=== PATIENT | male | born 2000 | race Caucasian/White ===

== ENCOUNTER 2019-07-08 19:10 | Emergency (ER) | payer SELFPAY ==
[2019-07-08] MEDS ORDERED: cefTRIAXone 250 MG in Lidocaine 1% 1 ML IM ONE (20:11)
[2019-07-08] MEDS ORDERED: Doxycycline 100 MG Cap PO ONE (20:12)
--- NOTE | 2019-07-08 20:35 | EDM.PDOC ---
ED HPI GENERAL MEDICAL PROBLEM - General Chief Complaint: Genitourinary Problem Stated Complaint: RIGHT TESTICULAR PAIN Time Seen by Provider: 07/08/19 20:15 Source of Information: Reports: Patient - History of Present Illness INITIAL COMMENTS - FREE TEXT/NARRATIVE: The patient is a 18-year-old male who presents to the ER secondary to right- sided testicular pain. He states that it is not severe. He states that he was at work a few days ago and noticed a slight ache in his right testicle on the backside. He did not notice any lumps, no penile discharge, no dysuria, no swelling, no flank pain, no abdominal pain, no other acute complaints. The pain had gone away by the time the patient had gone to bed and when he woke up and went back to work he was fine most of the day and then the ache returned. He then went home and took a shower and the ache went away and then returned again today. It seems to be better if he takes a hot shower or if he supports his testicle. It still is intermittent. No other acute complaints. testicle Pain Score (Numeric/FACES): 4 - Related Data Allergies Allergy/AdvReac Type Severity Reaction Status Date / Time No Known Allergies Allergy Verified 07/08/19 19:40 Home Meds: Home Meds Doxycycline [Vibramycin] 100 mg PO BID 10 Days #20 cap 07/08/19 [Rx] Past Medical History - Past Health History Medical/Surgical History: Denies Medical/Surgical History Social & Family History - Family History Family Medical History: Noncontributory - Tobacco Use Smoking Status *Q: Current Every Day Smoker Years of Tobacco use: 1 Packs/Tins Daily: 0.5 Tobacco Use Comment: socially - Caffeine Use Caffeine Use: Reports: None ED ROS GENERAL - Review of Systems Review Of Systems: See Below (Positive for right testicular pain, negative for fevers, negative abdominal pain, negative for flank pain, negative for penile discharge, negative for dysuria, all other Positives and pertinent negatives as per HPI. All other pertinent systems were reviewed and are negative) ED EXAM, RENAL/ - Physical Exam Exam: See Below Text/Narrative:: Constitutional: No acute distress, Non-toxic appearance. HEENT: Normocephalic, Atraumatic, EOMI Neck: Normal range of motion, No stridor, trachea midline Respiratory: No respiratory distress, No tachypnea Cardiovascular: Deferred Gastrointestinal: Abdomen is soft and nontender, no hernias palpated Genital / Urinary: External genitalia is within normal limits, no hernia is palpated, there is some mild tenderness to the posterior aspect of the right testicle but no swelling, no other acute findings Musculoskeletal: All four extremities present and atraumatic Back: FROM, no CVA tenderness Integument: Warm, Dry, Color is ethnicity appropriate, No rash. Neuro: Alert, Awake, No focal deficits noted Psych: Affect, Judgement, mood normal Course - Vital Signs Text/Narrative:: History and exam are consistent with classic epididymitis especially given that the patient is not having any type of sudden onset pain, severe pain, etc. Other considerations such as ureterolithiasis, pyelonephritis, and testicular cancers have been considered but at this time, no emergency ultrasound is warranted. I talked with the patient in detail and he is comfortable with no ultrasound at this time and given the symptomology he will be given 1 dose of Rocephin 250 mg IM and doxycycline 100 mg p.o. and a prescription for doxycycline. He will also be provided with urology follow-up. If the patient starts developing persistent symptoms, severe pain, etc. then he should return to the ER promptly otherwise urology follow-up is appropriate. Last Recorded V/S: Last Vital Signs Temp 37.4 C 07/08/19 19:38 Pulse 99 07/08/19 19:38 Resp 16 07/08/19 19:38 BP 141/72 H 07/08/19 19:38 Pulse Ox 96 07/08/19 19:38 - Orders/Labs/Meds Meds: Medications Discontinued Medications Generic Name Dose Route Start Last Admin Trade Name Brionna PRN Reason Stop Dose Admin Doxycycline Hyclate 100 mg 07/08/19 20:12 07/08/19 20:22 Vibramycin PO 07/08/19 20:13 100 mg ONETIME ONE Administration Ceftriaxone Sodium 250 mg/ 1 mls @ 1 mls/sec 07/08/19 20:11 07/08/19 20:21 Lidocaine HCl IM 07/08/19 20:12 1 mls/sec ONETIME ONE Administration Departure - Departure Time of Disposition: 20:37 Disposition: Home, Self-Care 01 Condition: Good Clinical Impression: Epididymitis - Discharge Information *PRESCRIPTION DRUG MONITORING PROGRAM REVIEWED*: Not Applicable *COPY OF PRESCRIPTION DRUG MONITORING REPORT IN PATIENT BENITA: Not Applicable Instructions: Epididymitis, Testicular Self-Exam, [id number] Referrals: PCP,None [Primary Care Provider] - Naye Lundy MD [Physician] - Sepsis Event Note - Evaluation Sepsis Screening Result: No Definite Risk - Focused Exam Vital Signs: Vital Signs Temp Pulse Resp BP Pulse Ox 07/08/19 19:38 37.4 C 99 16 141/72 H 96 Date Exam was Performed: 07/08/19 Time Exam was Performed: 20:30
== END 2019-07-08 20:50 | disposition home or self-care (01) ==
LOC: MW.ED 19:10
DX: N45.1 Epididymitis (principal); F17.210 Nicotine dependence, cigarettes, uncomplicated
CPT/HCPCS: 96372; 99283; A9270; J0696; J2001

== ENCOUNTER 2019-10-12 18:22 | Emergency (ER) | payer OTHER ==
--- NOTE | 2019-10-12 19:31 | EDM.PDOC ---
ED HPI GENERAL MEDICAL PROBLEM - General Chief Complaint: Genitourinary Problem Stated Complaint: POSSIBLE INFECTION Time Seen by Provider: 10/12/19 18:23 Source of Information: Reports: Patient History Limitations: Reports: No Limitations - History of Present Illness INITIAL COMMENTS - FREE TEXT/NARRATIVE: HISTORY AND PHYSICAL: History of present illness: Patient is a 19-year-old male who presents to the emergency room with complaints of bilateral testicular pain and swelling over the past 24 hours. He states he had epididymitis on 07/08/2019 and is concerned that he may have it again as the symptoms are similar. He does have unprotected sex but with the same partner. He denies any penile lesions or discharge. Patient denies any fever, chills, headache, change in vision, syncope or near syncope. Denies any chest pain, back pain, shortness of breath or cough. Denies any abdominal pain, nausea, vomiting, diarrhea, constipation or dysuria. Has not noted any blood in urine or stool. Patient has been eating and drinking appropriately. Review of systems: As per history of present illness and below otherwise all systems reviewed and negative. Past medical history: As per history of present illness and as reviewed below otherwise noncontributory. Surgical history: As per history of present illness and as reviewed below otherwise noncontributory. Social history: See social history for further information Family history: As per history of present illness and as reviewed below otherwise noncontributory. Physical exam: General: Well-developed and well-nourished 19-year-old male. Alert and oriented. Nontoxic-appearing and in no acute distress. HEENT: Atraumatic, normocephalic, pupils equal and reactive bilaterally, negative for conjunctival pallor or scleral icterus, mucous membranes moist, TMs normal bilaterally, throat clear, neck supple, nontender, trachea midline. No drooling or trismus noted. No meningeal signs. No hot potato voice noted. Lungs: Clear to auscultation, breath sounds equal bilaterally, chest nontender. Heart: S1S2, regular rate and rhythm without overt murmur Abdomen: Soft, nondistended, nontender. Negative for masses or hepatosplenomegaly. Negative for costovertebral tenderness. Pelvis: Stable nontender. Genitourinary: This was done with consent and a processing lead at the bedside. There is no testicular swelling or redness but does have mild tenderness with palpation of both testes. No hernias appreciated. +Cremasteric reflex Skin: Intact, warm, dry. No lesions or rashes noted. Extremities: Atraumatic, moves all extremities per self without difficulty or deficits, negative for cords or calf pain. Neurovascular unremarkable. Neuro: Awake, alert, oriented. Cranial nerves II through XII unremarkable. Cerebellum unremarkable. Motor and sensory unremarkable throughout. Exam nonfocal. Notes: Lab work and ultrasound showed no significant findings. We did talk about whether he felt he was exposed or at risk for gonorrhea and chlamydia, he states he has been with the same partner for a long period of time and does not want prophylactic antibiotic treatment until results have returned. We discussed signs and symptoms that would prompt him to return to the emergency room. Supportive care measures were reviewed and discussed. Voices understanding and is agreeable to plan of care. Denies any further questions or concerns at this time. Diagnostics: UA, Calvin/Chlamydia, Testicular US Therapeutics: None Prescription: None Impression: Testicular pain Plan: 1. Your testicular ultrasound is normal. Your urine shows no concerning findings that would require antibiotics. We did do a gonorrhea and chlamydia lab which is a send out and does take a few days to return. If for some reason this is positive we will call you and get you the appropriate medication. 2. Gentle heat and alternating Tylenol and ibuprofen may help with discomfort. Make sure you are wearing supportive underwear. 3. Follow-up with your primary care provider as we discussed. Return to the ED as needed and as discussed. Definitive disposition and diagnosis as appropriate pending reevaluation and review of above. - Related Data Allergies Allergy/AdvReac Type Severity Reaction Status Date / Time No Known Allergies Allergy Verified 10/12/19 18:33 Home Meds: Home Meds . [No Known Home Meds] 10/12/19 [History] Past Medical History - Past Health History Medical/Surgical History: Denies Medical/Surgical History Genitourinary History: Reports: Other (See Below) Other Genitourinary History: Hx Epididymitis Social & Family History - Family History Family Medical History: Noncontributory Endocrine/Metabolic: Reports: Diabetes, Type I - Tobacco Use Smoking Status *Q: Current Some Day Smoker Years of Tobacco use: 3 Packs/Tins Daily: 0 - Caffeine Use Caffeine Use: Reports: Energy Drinks, Soda - Recreational Drug Use Recreational Drug Use: No ED ROS GENERAL - Review of Systems Review Of Systems: Comprehensive ROS is negative, except as noted in HPI. ED EXAM, RENAL/ - Physical Exam Exam: See Below (See dictation) Course - Vital Signs Last Recorded V/S: Last Vital Signs Temp 99.8 F 10/12/19 18:31 Pulse 109 H 10/12/19 18:31 Resp 16 10/12/19 18:31 BP 130/63 10/12/19 18:31 Pulse Ox 98 10/12/19 18:31 - Orders/Labs/Meds Orders: Active Orders 24 hr Category Date Time Status CHLAMYDIA AND GONORRHEA BY [facility] Stat Lab 10/12/19 19:03 Received Labs: Laboratory Tests 10/12/19 Range/Units 19:03 Urine Color YELLOW Urine Appearance CLEAR Urine pH 6.0 (5.0-8.0) Ur Specific [place] 1.015 (1.001-1.035) Urine Protein NEGATIVE (NEGATIVE) mg/dL Urine Glucose (UA) NEGATIVE (NEGATIVE) mg/dL Urine Ketones NEGATIVE (NEGATIVE) mg/dL Urine Occult Blood NEGATIVE (NEGATIVE) Urine Nitrite NEGATIVE (NEGATIVE) Urine Bilirubin NEGATIVE (NEGATIVE) Urine Urobilinogen 0.2 (<2.0) EU/dL Ur Leukocyte Esterase NEGATIVE (NEGATIVE) Departure - Departure Time of Disposition: 21:22 Disposition: Home, Self-Care 01 Clinical Impression: Testicular pain, unspecified Qualifiers: Laterality: bilateral Qualified Code(s): N50.811 - Right testicular pain - Discharge Information Instructions: Testicular Self-Exam, [id number] Referrals: PCP,None [Primary Care Provider] - Forms: ED Department Discharge Additional Instructions: The following information is given to patients seen in the emergency department who are being discharged to home. This information is to outline your options for follow-up care. We provide all patients seen in our emergency department with a follow-up referral. The need for follow-up, as well as the timing and circumstances, are variable depending upon the specifics of your emergency department visit. If you don't have a primary care physician on staff, we will provide you with a referral. We always advise you to contact your personal physician following an emergency department visit to inform them of the circumstance of the visit and for follow-up with them and/or the need for any referrals to a consulting specialist. The emergency department will also refer you to a specialist when appropriate. This referral assures that you have the opportunity for follow-up care with a specialist. All of these measure are taken in an effort to provide you with optimal care, which includes your follow-up. Under all circumstances we always encourage you to contact your private physician who remains a resource for coordinating your care. When calling for follow-up care, please make the office aware that this follow-up is from your recent emergency room visit. If for any reason you are refused follow-up, please contact the [facility] Emergency Department at and asked to speak to the emergency department charge nurse. [facility] [address] [place] [address] [facility] [address] [place] [id number] 1. Your testicular ultrasound is normal. Your urine shows no concerning findings that would require antibiotics. We did do a gonorrhea and chlamydia lab which is a send out and does take a few days to return. If for some reason this is positive we will call you and get you the appropriate medication. 2. Gentle heat and alternating Tylenol and ibuprofen may help with discomfort. Make sure you are wearing supportive underwear. 3. Follow-up with your primary care provider as we discussed. Return to the ED as needed and as discussed. Sepsis Event Note (ED) - Evaluation Sepsis Screening Result: No Definite Risk - Focused Exam Vital Signs: Vital Signs Temp Pulse Resp BP Pulse Ox 10/12/19 18:31 99.8 F 109 H 16 130/63 98 - My Orders Last 24 Hours: My Active Orders 10/12/19 19:03 CHLAMYDIA AND GONORRHEA BY [facility] Stat - Assessment/Plan Last 24 Hours: My Active Orders 10/12/19 19:03 CHLAMYDIA AND GONORRHEA BY [facility] Stat
--- NOTE | 2019-10-12 21:13 | US ---
Testicular ultrasound: Multiple real-time images of the testicles were obtained. Comparison: No prior testicular imaging is available. Findings: Testicles have a homogeneous ultrasound appearance. Both arterial and venous blood flow are seen. Both epididymis appear unremarkable. No significant hydrocele is seen. Measurements: Right testicle: 4.6 x 2.2 x 2.9 cm Left testicle: 4.6 x 1.9 x 2.9 cm Impression: 1. No abnormality is identified on testicular ultrasound exam. Diagnostic code #1 This report was dictated in MDT
== END 2019-10-12 21:32 | disposition home or self-care (01) ==
LOC: MW.ED 18:22
DX: N50.811 Right testicular pain (principal); N50.812 Left testicular pain; F17.210 Nicotine dependence, cigarettes, uncomplicated
CPT/HCPCS: 76870; 76870-26; 81003; 87491; 87591; 99283; 99284-25

== ENCOUNTER 2020-04-18 04:09 | Inpatient (IN) | payer OTHER ==
[2020-04-18] MEDS ORDERED: Sodium Chloride 0.9% 10 ML Syringe FLUSH PRN (04:26)
[2020-04-18] MEDS ORDERED: Ondansetron 4 MG/2 ML SDV IVPUSH ONE (04:26)
[2020-04-18] MEDS ORDERED: Morphine 4 MG/ML Syringe IVPUSH ONE ×2 (04:26→07:09)
[2020-04-18] MEDS ORDERED: Sodium Chloride 0.9% 1,000 ML IV ONE (04:26)
[2020-04-18] MEDS ORDERED: Sodium Chloride 0.9% 2.5 ML Syringe FLUSH PRN ×2 (04:26→08:01)
--- NOTE | 2020-04-18 04:50 | EDM.PDOC ---
ED HPI GENERAL MEDICAL PROBLEM - General Chief Complaint: Abdominal Pain Stated Complaint: RIGHT SIDE ABDOMINAL PAIN Time Seen by Provider: 04/18/20 04:16 - History of Present Illness INITIAL COMMENTS - FREE TEXT/NARRATIVE: HISTORY AND PHYSICAL: History of present illness: This is a 19-year-old gentleman who presents ER today complaining of right upper quadrant abdominal discomfort that started several hours ago. Patient reports that today he drove to [place] and did not have a very good diet. Patient reports that he had done toast for breakfast followed by at [employer] pizza for lunch and then away home he had chips when he had the munchies. Patient reports currently has no appetite. Patient denies any recent fevers, shakes, chills, diarrhea, dysuria, frequency, urgency, URI symptoms, cough, congestion, loss of taste or smell. Patient has any coronavirus concerns. Patient reports the pain increases and is periumbilical and right lower quadrant area when he ambulates and walks. Patient reports he did have 3 episodes of emesis today the last episode was shortly prior to coming to the ED. Patient has not had any further episodes of emesis while in the ER. Patient reports that he did have a bowel movement earlier today when he was driving approximately 4 PM. Patient reports he has been passing flatus since. Patient denies any melena or bright red blood per rectum. Patient denies any hematochezia or coffee-ground emesis. Patient denies any past history of intermittent episodes of abdominal cramping or diarrhea that have been chronic. Patient denies any history of IBD or family history of IBD Review of systems: As per history of present illness and below otherwise all systems reviewed and negative. Past medical history: As per history of present illness and as reviewed below otherwise noncontributory. Surgical history: As per history of present illness and as reviewed below otherwise noncontributory. Social history: No reported history of drug or alcohol abuse. Family history: As per history of present illness and as reviewed below otherwise noncontributory. Physical exam: Constitutional: Patient is oriented to person, place, and time. Appears well- developed and well-nourished. No distress. HEENT: Moist mucous membranes Head: Normocephalic and atraumatic Eyes: Right eye exhibits no discharge. Left eye exhibits no discharge. No scleral icterus Neck: Normal range of motion. No tracheal deviation present. Cardiovascular: Normal rate and regular rhythm. Pulmonary: Effort normal, no respiratory distress. Abd: Soft, nondistended, no rebound/guarding, no psoas or obturator signs, tenderness at Mcberney's point, no Elizondo's sign. Pt does not present with an exam that would be consistent with an acute surgical abdomen at this time. Patient does have tenderness to palpation greatest in the periumbilical and right lower quadrant region. Patient has no tenderness to palpation in the right upper quadrant as described by him on presentation. Musculoskeletal: Normal range of motion Neurologic: Alert and oriented to person, place and time. Skin: [place], warm and dry. Psychiatric: Normal mood and affect. Behavior is normal. Judgment and thought content normal. Nursing note and vital signs have been reviewed Diagnostics: C, CMP, CT scan of the abdomen pelvis with IV contrast. UA CT scan of the abdomen pelvis with IV contrast reveals a partial small obstruction with dilatation of the mid small bowel to a short segment of focal narrowing of the distal jejunum probably a stricture. Moderate amount of free fluid in the pelvis probably secondary to the obstruction. No sign of free air or extraluminal air to suggest perforation. Appendix revealed no evidence of inflammatory changes. Therapeutics: KATE Augustine Assessment and plan: This is a 19-year-old gentleman who presents ER today complaining of right lower quadrant abdominal pain on exam which appears to initially start in the periumbilical region. Patient of labs drawn and a CT scan of the abdomen pelvis to further evaluate for possibility of appendicitis and other abdominal pathology. CT scan is consistent with partial small bowel obstruction with stricture. Case was discussed with Dr. Best. Patient's presentation appears to be most consistent with inflammatory bowel disease. Patient will be admitted to medical service with surgical consultation. I have discussed the case with Dr. Meredith with agreed to accept patient under observation. Patient had no episodes of emesis so NG tube be held off for now. Definitive disposition and diagnosis as appropriate pending reevaluation and review of above. Abdomen Pain Score (Numeric/FACES): 8 - Related Data Allergies Allergy/AdvReac Type Severity Reaction Status Date / Time No Known Allergies Allergy Verified 04/18/20 04:21 Home Meds: Home Meds . [No Known Home Meds] 10/12/19 [History] Past Medical History - Past Health History Medical/Surgical History: Denies Medical/Surgical History HEENT History: Reports: None Cardiovascular History: Reports: None Respiratory History: Reports: None Gastrointestinal History: Reports: None Genitourinary History: Reports: Other (See Below) Other Genitourinary History: Hx Epididymitis Musculoskeletal History: Reports: None Neurological History: Reports: None Psychiatric History: Reports: None Endocrine/Metabolic History: Reports: None Insulin Pump Model and Tin Flopper: None Hematologic History: Reports: None Immunologic History: Reports: None Oncologic (Cancer) History: Reports: None Dermatologic History: Reports: None - Infectious Disease History Infectious Disease History: Reports: None Social & Family History - Family History Family Medical History: No Pertinent Family History Endocrine/Metabolic: Reports: Diabetes, Type I - Caffeine Use Caffeine Use: Reports: Coffee, Energy Drinks - Recreational Drug Use Recreational Drug Use: No ED ROS GENERAL - Review of Systems Review Of Systems: See Below ED EXAM, GENERAL - Physical Exam Exam: See Below Course - Vital Signs Last Recorded V/S: Last Vital Signs Temp 98.2 F 04/18/20 04:15 Pulse 103 H 04/18/20 05:58 Resp 16 04/18/20 05:58 BP 106/51 L 04/18/20 05:58 Pulse Ox 99 04/18/20 05:58 - Orders/Labs/Meds Orders: Active Orders 24 hr Category Date Time Status Patient Status [ADT] Routine ADT 04/18/20 06:05 Active CORONAVIRUS COVID-19 BARB [MOLEC] Stat Lab 04/18/20 06:00 Received Sodium Chloride 0.9% [Saline Flush] Med 04/18/20 04:26 Active 10 ml FLUSH ASDIRECTED PRN Sodium Chloride 0.9% [Saline Flush] Med 04/18/20 04:26 Active 2.5 ml FLUSH ASDIRECTED PRN Saline Lock Insert [OM.PC] Stat Oth 04/18/20 04:26 Ordered Medication Orders Sodium Chloride (Saline Flush) 10 ml FLUSH ASDIRECTED PRN PRN Reason: Keep Vein Open Last Admin: 04/18/20 04:37 Dose: 10 ml Documented by: Space Apart Sodium Chloride (Saline Flush) 2.5 ml FLUSH ASDIRECTED PRN PRN Reason: Keep Vein Open Last Admin: 04/18/20 04:37 Dose: 2.5 ml Documented by: Space Apart Labs: Laboratory Tests 04/18/20 04/18/20 04/18/20 Range/Units 04:26 04:26 04:30 WBC 14.36 H (4.0-11.0) K/uL RBC 5.16 (4.50-5.90) M/uL Hgb 16.5 (13.0-17.0) g/dL Hct 47.2 (38.0-50.0) % MCV 91.5 (80.0-98.0) fL MCH 32.0 (27.0-32.0) pg MCHC 35.0 (31.0-37.0) g/dL RDW Std Deviation 41.3 (28.0-62.0) fl RDW Coeff of [place] 12 (11.0-15.0) % Plt Count 188 (150-400) K/uL MPV 10.20 (7.40-12.00) fL Neut % (Auto) 84.4 H (48.0-80.0) % Lymph % (Auto) 8.3 L (16.0-40.0) % Roberts % (Auto) 6.8 (0.0-15.0) % Eos % (Auto) 0.4 (0.0-7.0) % Baso % (Auto) 0.1 (0.0-1.5) % Neut # (Auto) 12.1 H (1.4-5.7) K/uL Lymph # (Auto) 1.2 (0.6-2.4) K/uL Roberts # (Auto) 1.0 H (0.0-0.8) K/uL Eos # (Auto) 0.1 (0.0-0.7) K/uL Baso # (Auto) 0.0 (0.0-0.1) K/uL Nucleated RBC % 0.0 /100WBC Nucleated RBCs # 0 K/uL Sodium 145 (136-148) mmol/L Potassium 3.3 L (3.5-5.1) mmol/L Chloride 105 (98-107) mmol/L Carbon Dioxide 27.7 (21.0-32.0) mmol/L BUN 12 (7.0-18.0) mg/dL Creatinine 1.0 (0.8-1.3) mg/dL Est Cr Clr Drug Dosing 129.33 mL/min Estimated GFR (MDRD) > 60.0 ml/min Glucose 122 H (74-106) mg/dL Calcium 9.3 (8.5-10.1) mg/dL Total Bilirubin 1.5 H (0.2-1.0) mg/dL AST 20 (15-37) IU/L ALT 35 (14-63) IU/L Alkaline Phosphatase 63 (46-116) U/L Total Protein 7.4 (6.4-8.2) g/dL Albumin 4.3 (3.4-5.0) g/dL Globulin 3.1 (2.6-4.0) g/dL Albumin/Globulin Ratio 1.4 (0.9-1.6) Lipase 46 L (73-393) U/L Urine Color YELLOW Urine Appearance CLEAR Urine pH 6.0 (5.0-8.0) Ur Specific [place] >= 1.030 (1.001-1.035) Urine Protein NEGATIVE (NEGATIVE) mg/dL Urine Glucose (UA) NEGATIVE (NEGATIVE) mg/dL Urine Ketones NEGATIVE (NEGATIVE) mg/dL Urine Occult Blood NEGATIVE (NEGATIVE) Urine Nitrite NEGATIVE (NEGATIVE) Urine Bilirubin NEGATIVE (NEGATIVE) Urine Urobilinogen 1.0 (<2.0) EU/dL Ur Leukocyte Esterase NEGATIVE (NEGATIVE) Meds: Medications Generic Name Dose Route Start Last Admin Trade Name Freq PRN Reason Stop Dose Admin Sodium Chloride 10 ml 04/18/20 04:26 04/18/20 04:37 Saline Flush FLUSH 10 ml ASDIRECTED PRN Administration Keep Vein Open Sodium Chloride 2.5 ml 04/18/20 04:26 04/18/20 04:37 Saline Flush FLUSH 2.5 ml ASDIRECTED PRN Administration Keep Vein Open Discontinued Medications Generic Name Dose Route Start Last Admin Trade Name Freq PRN Reason Stop Dose Admin Sodium Chloride 1,000 mls @ 999 mls/hr 04/18/20 04:26 04/18/20 04:36 Normal Saline IV 04/18/20 05:26 999 mls/hr .Bolus ONE Administration Iopamidol 100 ml 04/18/20 05:25 04/18/20 05:25 Isovue Multipack-370 (76%) IVPUSH 04/18/20 05:26 100 ml ONETIME STA Administration Morphine Sulfate 4 mg 04/18/20 04:26 04/18/20 04:35 Morphine IVPUSH 04/18/20 04:27 4 mg ONETIME ONE Administration Ondansetron HCl 4 mg 04/18/20 04:26 04/18/20 04:35 Zofran IVPUSH 04/18/20 04:27 4 mg ONETIME ONE Administration Departure - Departure Time of Disposition: 06:05 Disposition: Refer to Observation Condition: Good Clinical Impression: Small bowel obstruction - Discharge Information Referrals: PCP,None [Primary Care Provider] - Forms: ED Department Discharge Sepsis Event Note (ED) - Evaluation Sepsis Screening Result: No Definite Risk - Focused Exam Vital Signs: Vital Signs Temp Pulse Resp BP Pulse Ox 04/18/20 05:58 103 H 16 106/51 L 99 04/18/20 05:07 89 16 123/55 L 96 04/18/20 04:15 98.2 F 80 18 126/59 L 97 - My Orders Last 24 Hours: My Active Orders 04/18/20 04:26 Sodium Chloride 0.9% [Saline Flush] 10 ml FLUSH ASDIRECTED PRN Sodium Chloride 0.9% [Saline Flush] 2.5 ml FLUSH ASDIRECTED PRN Saline Lock Insert [OM.PC] Stat 04/18/20 06:00 CORONAVIRUS COVID-19 BARB [MOLEC] Stat 04/18/20 06:05 Patient Status [ADT] Routine - Assessment/Plan Last 24 Hours: My Active Orders 04/18/20 04:26 Sodium Chloride 0.9% [Saline Flush] 10 ml FLUSH ASDIRECTED PRN Sodium Chloride 0.9% [Saline Flush] 2.5 ml FLUSH ASDIRECTED PRN Saline Lock Insert [OM.PC] Stat 04/18/20 06:00 CORONAVIRUS COVID-19 BARB [MOLEC] Stat 04/18/20 06:05 Patient Status [ADT] Routine
[2020-04-18 04:54] LABS: BLOOD UREA NITROGEN,BUN 12 mg/dL (7.0-18.0); CARBON DIOXIDE,CO2 27.7 mmol/L (21.0-32.0); CHLORIDE,CL 105 mmol/L (98-107); GLUCOSE RANDOM 122 mg/dL (74-106); LIPASE 46 U/L (73-393); POTASSIUM,K 3.3 mmol/L (3.5-5.1); SODIUM,NA 145 mmol/L (136-148)
[2020-04-18] MEDS ORDERED: Iopamidol 755 MG/ML 500 ML Multipack Bottle IVPUSH STA (05:25)
--- NOTE | 2020-04-18 05:50 | CT ---
INDICATION: Right lower quadrant pain. COMPARISON: None available TECHNIQUE: CT examination of the abdomen and pelvis was performed with the uneventful intravenous administration of 100 cc of Isovue 370 while 3 mm thick axial sections were obtained from the lung bases through the pubic symphysis. Oral contrast was not administered. Please note that all CT scans at this facility use dose modulation, iterative reconstruction, and/or weight-based dosing when appropriate to reduce radiation dose to as low as reasonably achievable. FINDINGS: There is moderate dilatation of the mid small bowel in the central inferior abdomen and upper pelvis, extending to a point of transition in the posterior left paramedian mid pelvis best seen on axial image 104 series 201 and coronal image 52 series 203. The findings are that of partial small-bowel obstruction produced by what is probably a stricture, without angulation of the small bowel to suggest an adhesion. There is a moderate amount of free fluid in the pelvis, more prominent on the right. There is no sign of free air or extraluminal air to suggest bowel perforation. The stomach and proximal small bowel is nondistended. In the abdomen, the liver, spleen, pancreas, and adrenals are normal in appearance. The kidneys are normal in appearance. The gallbladder is normal in appearance. The abdominal aorta is normal in caliber with no sign of dilatation. There is no sign of retroperitoneal mass or adenopathy. The stomach, loops of small bowel, and colon in the abdomen are normal in appearance. In the pelvis, the appendix is normal in appearance with no sign of inflammatory process. The loops of small bowel and colon in the pelvis are normal in appearance. The prostate is normal in appearance. The urinary bladder is normal in appearance. There is no sign of pelvic or inguinal mass or adenopathy. There is no sign of free air or free fluid in the abdomen. There is no sign of free air or extraluminal air in the pelvis. The lung bases are clear. The osseous structures are normal in appearance for the patient`s age. IMPRESSION: Partial small bowel obstruction with dilatation of the mid small bowel to a short segment of focal narrowing of the distal jejunum, probably a stricture. Moderate amount of free fluid in the pelvis, probably secondary to the obstruction. No sign of free air or extraluminal air to suggest perforation however. CT of the abdomen shows no additional abnormality. CT of the pelvis shows no additional abnormality. Please note that all CT scans at this facility use dose modulation, iterative reconstruction, and/or weight-based dosing when appropriate to reduce radiation dose to as low as reasonably achievable. Dictated by Craig Still MD @ Apr 18 2020 5:40AM Signed by Dr. Craig Still @ Apr 18 2020 5:48AM
[2020-04-18] MEDS ORDERED: Sodium Chloride 0.9% 1,000 ML IV STA (07:38)
[2020-04-18] MEDS ORDERED: Potassium Chloride Riders 20 MEQ in Premix Bag 1 BAG IV ONE (07:41)
--- NOTE | 2020-04-18 08:03 | PCM.HP.2 ---
H&P History of Present Illness - General Date of Service: 04/18/20 Admit Problem/Dx: Admission Diagnosis/Problem Admission Diagnosis/Problem Small bowel obstruction Source of Information: Patient History Limitations: Reports: No Limitations - History of Present Illness Initial Comments - Free Text/Narative: This 19-year-old male with no significant past medical history presented to the ER today with complaints of right mid and periumbilical abdominal pain. He reports this pain started yesterday evening. He was driving home with his from their honeymoon and has opted to gas station gotten [place]. He had started eating chips and felt sudden pain in his abdomen the tips of thinking he just had an upset stomach. The pain continued as a squeezing cramping feeling like something was stuck sensation. This pain lasted through the night and he was unable to sleep much. He did wake up about 2 or 3 in the morning and had significant nausea and vomiting. He denies any coffee-ground emesis or bloody emesis. He reports he has been passing gas and had bowel movement 04/17/2020 in the morning. Which she feels this was normal. He reports no fevers chills c hest pain shortness of breath palpitations no trouble urinating. He reports prior to this he has been feeling well and has had no health concerns. He denies any recent bowel habit changes. No recent diet changes. He denies any personal or family history of colon cancer IBS or IBD. He denies any abdominal surgeries and no colonoscopy in the past for him. He denies any alcohol abuse, does chew 1 tin every 2 to 3 days of tobacco. Denies any recreational drug use. In the ER he was noted to have leukocytosis 14,000. Small left shift with neutrophils 84% potassium 3.3 glucose 122 bili is 1.5 no other elevations of liver functions. UA was negative Covid swab was negative he was treated with pain medicine and IV fluids. He was noted to be slightly tachycardic in the ER but this resolved with IV fluids. CT of the abdomen and pelvis was obtained which showed a partial small bowel obstruction with dilation of the mid small bowel to a short segment of focal narrowing in the distal jejunum probably a stricture. Dr. Best, general surgery, was contacted and recommended admission from hospitalist and he would consult. He will be admitted for small bowel obstruction. Abdomen Pain Score (Numeric/FACES): 8 - Related Data Allergies/Adverse Reactions: Allergies Allergy/AdvReac Type Severity Reaction Status Date / Time No Known Allergies Allergy Verified 04/18/20 08:28 Home Medications: Home Meds . [No Known Home Meds] 10/12/19 [History] Past Medical History - Past Health History Medical/Surgical History: Denies Medical/Surgical History HEENT History: Reports: None Cardiovascular History: Reports: None Respiratory History: Reports: None Gastrointestinal History: Reports: None Genitourinary History: Reports: Other (See Below) Other Genitourinary History: Hx Epididymitis Musculoskeletal History: Reports: None Neurological History: Reports: None Psychiatric History: Reports: None Endocrine/Metabolic History: Reports: None Insulin Pump Model and Diamond Driller: None Hematologic History: Reports: None Immunologic History: Reports: None Oncologic (Cancer) History: Reports: None Dermatologic History: Reports: None - Infectious Disease History Infectious Disease History: Reports: None Social & Family History - Family History Family Medical History: No Pertinent Family History Endocrine/Metabolic: Reports: Diabetes, Type I - Tobacco Use Tobacco Use Status *Q: Light Tobacco User Tobacco Use Within Last Twelve Months: Smokeless Tobacco (Chewing tobacco 1 tin every couple days) - Caffeine Use Caffeine Use: Reports: Coffee, Energy Drinks - Alcohol Use Alcohol Use History: No - Recreational Drug Use Recreational Drug Use: No - Living Situation & Occupation Living situation: Reports: (Newlywed) Occupation: Employed H&P Review of Systems - Review of Systems: Review Of Systems: See Below General: Reports: No Symptoms. Denies: Fever, Chills, Malaise HEENT: Reports: No Symptoms. Denies: Headaches, Sore Throat, Vertigo Pulmonary: Reports: No Symptoms. Denies: Shortness of Breath Cardiovascular: Reports: No Symptoms. Denies: Chest Pain Gastrointestinal: Reports: Abdominal Pain (Right mid and periumbilical abdominal pain), Nausea, Vomiting (Vomiting has since stopped but continues to feel nauseated). Denies: Diarrhea, Decreased Appetite Genitourinary: Reports: No Symptoms. Denies: Dysuria, Frequency, Burning Musculoskeletal: Reports: No Symptoms Skin: Reports: No Symptoms Psychiatric: Reports: No Symptoms Neurological: Reports: No Symptoms Hematologic/Lymphatic: Reports: No Symptoms Immunologic: Reports: No Symptoms Exam - Exam Exam: See Below - Vital Signs Vital Signs: Last Vital Signs Temp 98.2 F 12/16/20 04:15 Pulse 74 04/18/20 07:21 Resp 12 04/18/20 07:21 BP 108/50 L 04/18/20 07:21 Pulse Ox 95 04/18/20 07:21 Weight: 86.183 kg - Exam General: Alert, Oriented, Cooperative HEENT: Conjunctiva Clear, Mucosa Moist & [place], Posterior Pharynx Clear Lungs: Clear to Auscultation, Normal Respiratory Effort Cardiovascular: Regular Rate, Regular Rhythm GI/Abdominal Exam: Soft, Tender (Periumbilical and right mid abdomen). No: Normal Bowel Sounds (Hypoactive bowel sounds) Back Exam: Normal Inspection, Full Range of Motion Neurological: Cranial Nerves Intact Neuro Extensive - Mental Status: Alert, Oriented x3, Normal Mood/Affect Psychiatric: Alert, Normal Affect, Normal Mood - Patient Data Lab Results Last 24 hrs: Laboratory Results - last 24 hr 04/18/20 04/18/20 04/18/20 Range/Units 04:26 04:26 04:30 WBC 14.36 H (4.0-11.0) K/uL RBC 5.16 (4.50-5.90) M/uL Hgb 16.5 (13.0-17.0) g/dL Hct 47.2 (38.0-50.0) % MCV 91.5 (80.0-98.0) fL MCH 32.0 (27.0-32.0) pg MCHC 35.0 (31.0-37.0) g/dL RDW Std Deviation 41.3 (28.0-62.0) fl RDW Coeff of [place] 12 (11.0-15.0) % Plt Count 188 (150-400) K/uL MPV 10.20 (7.40-12.00) fL Neut % (Auto) 84.4 H (48.0-80.0) % Lymph % (Auto) 8.3 L (16.0-40.0) % [place] % (Auto) 6.8 (0.0-15.0) % Eos % (Auto) 0.4 (0.0-7.0) % Baso % (Auto) 0.1 (0.0-1.5) % Neut # (Auto) 12.1 H (1.4-5.7) K/uL Lymph # (Auto) 1.2 (0.6-2.4) K/uL [place] # (Auto) 1.0 H (0.0-0.8) K/uL Eos # (Auto) 0.1 (0.0-0.7) K/uL Baso # (Auto) 0.0 (0.0-0.1) K/uL Nucleated RBC % 0.0 /100WBC Nucleated RBCs # 0 K/uL Sodium 145 (136-148) mmol/L Potassium 3.3 L (3.5-5.1) mmol/L Chloride 105 (98-107) mmol/L Carbon Dioxide 27.7 (21.0-32.0) mmol/L BUN 12 (7.0-18.0) mg/dL Creatinine 1.0 (0.8-1.3) mg/dL Est Cr Clr Drug Dosing 129.33 mL/min Estimated GFR (MDRD) > 60.0 ml/min Glucose 122 H (74-106) mg/dL Calcium 9.3 (8.5-10.1) mg/dL Total Bilirubin 1.5 H (0.2-1.0) mg/dL AST 20 (15-37) IU/L ALT 35 (14-63) IU/L Alkaline Phosphatase 63 (46-116) U/L Total Protein 7.4 (6.4-8.2) g/dL Albumin 4.3 (3.4-5.0) g/dL Globulin 3.1 (2.6-4.0) g/dL Albumin/Globulin Ratio 1.4 (0.9-1.6) Lipase 46 L (73-393) U/L Urine Color YELLOW Urine Appearance CLEAR Urine pH 6.0 (5.0-8.0) Ur Specific [place] >= 1.030 (1.001-1.035) Urine Protein NEGATIVE (NEGATIVE) mg/dL Urine Glucose (UA) NEGATIVE (NEGATIVE) mg/dL Urine Ketones NEGATIVE (NEGATIVE) mg/dL Urine Occult Blood NEGATIVE (NEGATIVE) Urine Nitrite NEGATIVE (NEGATIVE) Urine Bilirubin NEGATIVE (NEGATIVE) Urine Urobilinogen 1.0 (<2.0) EU/dL Ur Leukocyte Esterase NEGATIVE (NEGATIVE) SARS-CoV-2 RNA (BARB) (NEGATIVE) 04/18/20 Range/Units 06:00 WBC (4.0-11.0) K/uL RBC (4.50-5.90) M/uL Hgb (13.0-17.0) g/dL Hct (38.0-50.0) % MCV (80.0-98.0) fL MCH (27.0-32.0) pg MCHC (31.0-37.0) g/dL RDW Std Deviation (28.0-62.0) fl RDW Coeff of [place] (11.0-15.0) % Plt Count (150-400) K/uL MPV (7.40-12.00) fL Neut % (Auto) (48.0-80.0) % Lymph % (Auto) (16.0-40.0) % [place] % (Auto) (0.0-15.0) % Eos % (Auto) (0.0-7.0) % Baso % (Auto) (0.0-1.5) % Neut # (Auto) (1.4-5.7) K/uL Lymph # (Auto) (0.6-2.4) K/uL [place] # (Auto) (0.0-0.8) K/uL Eos # (Auto) (0.0-0.7) K/uL Baso # (Auto) (0.0-0.1) K/uL Nucleated RBC % /100WBC Nucleated RBCs # K/uL Sodium (136-148) mmol/L Potassium (3.5-5.1) mmol/L Chloride (98-107) mmol/L Carbon Dioxide (21.0-32.0) mmol/L BUN (7.0-18.0) mg/dL Creatinine (0.8-1.3) mg/dL Est Cr Clr Drug Dosing mL/min Estimated GFR (MDRD) ml/min Glucose (74-106) mg/dL Calcium (8.5-10.1) mg/dL Total Bilirubin (0.2-1.0) mg/dL AST (15-37) IU/L ALT (14-63) IU/L Alkaline Phosphatase (46-116) U/L Total Protein (6.4-8.2) g/dL Albumin (3.4-5.0) g/dL Globulin (2.6-4.0) g/dL Albumin/Globulin Ratio (0.9-1.6) Lipase (73-393) U/L Urine Color Urine Appearance Urine pH (5.0-8.0) Ur Specific [place] (1.001-1.035) Urine Protein (NEGATIVE) mg/dL Urine Glucose (UA) (NEGATIVE) mg/dL Urine Ketones (NEGATIVE) mg/dL Urine Occult Blood (NEGATIVE) Urine Nitrite (NEGATIVE) Urine Bilirubin (NEGATIVE) Urine Urobilinogen (<2.0) EU/dL Ur Leukocyte Esterase (NEGATIVE) SARS-CoV-2 RNA (BARB) NEGATIVE (NEGATIVE) Result Diagrams: 04/18/20 04:26 04/18/20 04:26 Sepsis Event Note - Evaluation Sepsis Screening Result: No Definite Risk - Focused Exam Vital Signs: Vital Signs Temp Pulse Resp BP Pulse Ox 04/18/20 07:21 74 12 108/50 L 95 04/18/20 07:02 84 126/56 L 98 04/18/20 05:58 103 H 16 106/51 L 99 04/18/20 05:07 89 16 123/55 L 96 04/18/20 04:15 98.2 F 80 18 126/59 L 97 - Problem List (1) Small bowel obstruction SNOMED Code(s): 870272108 ICD Code: K56.609 - UNSP INTESTNL OBST, UNSP TO PARTIAL VERSUS COMPLETE OBST Status: Acute Priority: High Current Visit: Yes (2) Inflammatory bowel disease SNOMED Code(s): 77983158 ICD Code: K52.9 - NONINFECTIVE GASTROENTERITIS AND COLITIS, UNSPECIFIED Status: Suspected Priority: High Current Visit: Yes Problem List Initiated/Reviewed/Updated: Yes Orders Last 24hrs: Active Orders 24 hr Category Date Time Status Patient Status [ADT] Routine ADT 04/18/20 06:05 Active Intake and Output [RC] QSHIFT Care 04/18/20 08:00 Ordered Oxygen Therapy [RC] PRN Care 04/18/20 07:33 Active Up With Assistance [RC] ASDIRECTED Care 04/18/20 07:41 Active VTE/DVT Education [RC] PER UNIT ROUTINE Care 04/18/20 07:33 Active Vital Signs [RC] Q4H Care 04/18/20 07:33 Active NPO [Nothing Per Oral Diet] [DIET] Diet 12/16/20 Lunch Active Lactated Ringers [Ringers, Lactated] 1,000 ml Med 04/18/20 08:15 Ordered IV Q8H Morphine Med 04/18/20 07:40 Active 2 mg IVPUSH Q2H PRN Ondansetron [Zofran] Med 04/18/20 08:01 Ordered 4 mg IVPUSH Q4H PRN Potassium Chloride Riders [KCL 20 MEQ in Water 50 ML] Med 04/18/20 07:41 Ordered 20 meq Premix Bag 1 bag IV ONETIME Sodium Chloride 0.9% [Saline Flush] Med 04/18/20 08:01 Ordered 2.5 ml FLUSH ASDIRECTED PRN Saline Lock Insert [OM.PC] Routine Oth 04/18/20 08:01 Ordered Resuscitation Status Routine Resus Stat 04/18/20 08:00 Ordered Medication Orders Potassium Chloride 20 meq/ (Premix) 50 mls @ 25 mls/hr IV ONETIME ONE Stop: 04/18/20 09:40 Lactated Ringer's (Ringers, Lactated) 1,000 mls @ 125 mls/hr IV Q8H SHELBI Morphine Sulfate (Morphine) 2 mg IVPUSH Q2H PRN PRN Reason: Pain Ondansetron HCl (Zofran) 4 mg IVPUSH Q4H PRN PRN Reason: Nausea Sodium Chloride (Saline Flush) 2.5 ml FLUSH ASDIRECTED PRN PRN Reason: Keep Vein Open Assessment/Plan Comment:: This 19-year-old male admitted with small bowel obstruction 1. Small bowel obstruction -Appreciate Dr. Best's consultation and recommendations -Continue n.p.o. -LR at 125 ml/hr -Morphine as needed pain -Zofran as needed nausea -Continue conservative therapy -Will start Solu-Medrol 20 mg 3 times daily for suspected IBS. Will monitor closely -At this time there is no sign of infection. Will monitor closely and consider IV antibiotics if patient becomes febrile -Leukocytosis secondary to nausea vomiting and dehydration. Will monitor VTE prophylaxis SCDs and ambulation CODE STATUS: Full code Dispo: 2 days - Mortality Measure Prognosis:: Good
[2020-04-18] MEDS ORDERED: NS + KCl 20mEq/L 1,000 ML IV ONE (08:45)
[2020-04-18] MEDS: Lactated Ringers 1,000 ML IV SCH ×3 (08:51→23:22)
[2020-04-18] MEDS: Morphine 2 MG/ML SYRINGE IVPUSH PRN ×3 (09:00→16:36)
--- NOTE | 2020-04-18 10:35 | PCM.CONS ---
H&P History of Present Illness - General Date of Service: 04/18/20 Admit Problem/Dx: Admission Diagnosis/Problem Admission Diagnosis/Problem Small bowel obstruction Nausea, vomiting, abdominal pain Source of Information: Patient History Limitations: Reports: No Limitations - History of Present Illness Initial Comments - Free Text/Narative: Patient is a 19-year-old gentleman who presented to the emergency room early this morning complaining of abdominal pain, nausea and vomiting. He stated this started yesterday after eating some potato chips. Initially he thought this w ould resolve and he went home and went to bed. The pain worsened throughout the night to the point that he finally sought medical attention. He had multiple episodes of nausea and vomiting. Doesn't think he's been passing much gas. He has been having bowel movements. No prior history of GI tract problems. No prior history of abdominal surgery. No family history of inflammatory bowel disease. Symptom Onset Date: 04/17/20 Duration of Symptoms: Reports: Chronic, Constant, Getting Worse Location: Reports: Abdomen Quality: Reports: Pressure Severity: Moderate Improves with: Reports: Rest Worsens with: Reports: None Context: Reports: Sick Contact Associated Symptoms: Reports: Loss of Appetite, Nausea/Vomiting. Denies: Confusion, Chest Pain, Cough, Malaise, Shortness of Breath Abdomen Pain Score (Numeric/FACES): 8 - Related Data Allergies/Adverse Reactions: Allergies Allergy/AdvReac Type Severity Reaction Status Date / Time No Known Allergies Allergy Verified 04/18/20 08:28 Home Medications: Home Meds . [No Known Home Meds] 10/12/19 [History] Past Medical History - Past Health History Medical/Surgical History: Denies Medical/Surgical History HEENT History: Reports: None Cardiovascular History: Reports: None Respiratory History: Reports: None Gastrointestinal History: Reports: None Genitourinary History: Reports: Other (See Below) Other Genitourinary History: Hx Epididymitis Musculoskeletal History: Reports: None Neurological History: Reports: None Psychiatric History: Reports: None Endocrine/Metabolic History: Reports: None Insulin Pump Model and Deicer Finisher: None Hematologic History: Reports: None Immunologic History: Reports: None Oncologic (Cancer) History: Reports: None Dermatologic History: Reports: None - Infectious Disease History Infectious Disease History: Reports: None Social & Family History - Family History Family Medical History: No Pertinent Family History Endocrine/Metabolic: Reports: Diabetes, Type I - Caffeine Use Caffeine Use: Reports: Coffee, Energy Drinks - Recreational Drug Use Recreational Drug Use: No H&P Review of Systems - Review of Systems: Review Of Systems: See Below General: Reports: Decreased Appetite. Denies: Fever, Chills, Weakness, Fatigue, Weight Loss HEENT: Reports: No Symptoms Pulmonary: Denies: Shortness of Breath, Wheezing Cardiovascular: Denies: Chest Pain, Palpitations, Dyspnea on Exertion Gastrointestinal: Reports: Abdominal Pain, Anorexia, Diarrhea, Decreased Appetite, Nausea, Vomiting. Denies: Black Stool, Bloody Stool, Constipation, Distension, Flatus, Hematemesis, Hematochezia, Melena Genitourinary: Denies: Dysuria, Frequency, Burning, Pain, Urgency Musculoskeletal: Reports: No Symptoms Skin: Denies: Cyanosis, Jaundice, Mottled, Pallor Psychiatric: Denies: Confusion, Depression, Anxiety Neurological: Reports: No Symptoms Hematologic/Lymphatic: Denies: Anemia, Easy Bleeding, Easy Bruising Immunologic: Reports: No Symptoms Exam - Exam Exam: See Below - Vital Signs Vital Signs: Last Vital Signs Temp 98.2 F 04/18/20 04:15 Pulse 106 H 04/18/20 08:14 Resp 16 04/18/20 08:14 BP 109/54 L 04/18/20 08:14 Pulse Ox 97 04/18/20 08:14 Weight: 190 lb - Exam Quality Assessment: No: Supplemental Oxygen, Central Line/PICC, Urinary Catheter General: Alert, Oriented, Cooperative, Moderate Distress HEENT: Conjunctiva Clear, EACs Clear, Nares Patent, Pupils Equal, Pupils Reactive. No: Scleral Icterus Neck: Supple, Trachea Midline Lungs: Clear to Auscultation, Normal Respiratory Effort Cardiovascular: Regular Rate, Regular Rhythm, Normal S1, Normal S2. No: Tachycardia GI/Abdominal Exam: Soft, Non-Tender, No Distention, No Mass, Abnormal Bowel Sounds (Hypoactive). No: Guarding, Rigid, Rebound, Hernia, Mass (Male) Exam: No Hernia Rectal (Males) Exam: Deferred Back Exam: Normal Inspection, Full Range of Motion Extremities: Normal Inspection, Normal Range of Motion, Non-Tender Peripheral Pulses: 4+: Posterior Tibial (L), Posterior Tibial (R), Dorsalis Pedis (L), Dorsalis Pedis (R) Skin: Warm, Dry, Intact Neurological: Cranial Nerves Intact Neuro Extensive - Mental Status: Alert, Oriented x3, Normal Mood/Affect Psychiatric: Alert, Normal Affect, Normal Mood - Patient Data Lab Results Last 24 hrs: Laboratory Results - last 24 hr 04/18/20 04/18/20 04/18/20 Range/Units 04:26 04:26 04:30 WBC 14.36 H (4.0-11.0) K/uL RBC 5.16 (4.50-5.90) M/uL Hgb 16.5 (13.0-17.0) g/dL Hct 47.2 (38.0-50.0) % MCV 91.5 (80.0-98.0) fL MCH 32.0 (27.0-32.0) pg MCHC 35.0 (31.0-37.0) g/dL RDW Std Deviation 41.3 (28.0-62.0) fl RDW Coeff of [place] 12 (11.0-15.0) % Plt Count 188 (150-400) K/uL MPV 10.20 (7.40-12.00) fL Neut % (Auto) 84.4 H (48.0-80.0) % Lymph % (Auto) 8.3 L (16.0-40.0) % [place] % (Auto) 6.8 (0.0-15.0) % Eos % (Auto) 0.4 (0.0-7.0) % Baso % (Auto) 0.1 (0.0-1.5) % Neut # (Auto) 12.1 H (1.4-5.7) K/uL Lymph # (Auto) 1.2 (0.6-2.4) K/uL [place] # (Auto) 1.0 H (0.0-0.8) K/uL Eos # (Auto) 0.1 (0.0-0.7) K/uL Baso # (Auto) 0.0 (0.0-0.1) K/uL Nucleated RBC % 0.0 /100WBC Nucleated RBCs # 0 K/uL Sodium 145 (136-148) mmol/L Potassium 3.3 L (3.5-5.1) mmol/L Chloride 105 (98-107) mmol/L Carbon Dioxide 27.7 (21.0-32.0) mmol/L BUN 12 (7.0-18.0) mg/dL Creatinine 1.0 (0.8-1.3) mg/dL Est Cr Clr Drug Dosing 129.33 mL/min Estimated GFR (MDRD) > 60.0 ml/min Glucose 122 H (74-106) mg/dL Calcium 9.3 (8.5-10.1) mg/dL Total Bilirubin 1.5 H (0.2-1.0) mg/dL AST 20 (15-37) IU/L ALT 35 (14-63) IU/L Alkaline Phosphatase 63 (46-116) U/L Total Protein 7.4 (6.4-8.2) g/dL Albumin 4.3 (3.4-5.0) g/dL Globulin 3.1 (2.6-4.0) g/dL Albumin/Globulin Ratio 1.4 (0.9-1.6) Lipase 46 L (73-393) U/L Urine Color YELLOW Urine Appearance CLEAR Urine pH 6.0 (5.0-8.0) Ur Specific [place] >= 1.030 (1.001-1.035) Urine Protein NEGATIVE (NEGATIVE) mg/dL Urine Glucose (UA) NEGATIVE (NEGATIVE) mg/dL Urine Ketones NEGATIVE (NEGATIVE) mg/dL Urine Occult Blood NEGATIVE (NEGATIVE) Urine Nitrite NEGATIVE (NEGATIVE) Urine Bilirubin NEGATIVE (NEGATIVE) Urine Urobilinogen 1.0 (<2.0) EU/dL Ur Leukocyte Esterase NEGATIVE (NEGATIVE) SARS-CoV-2 RNA (BARB) (NEGATIVE) 04/18/20 Range/Units 06:00 WBC (4.0-11.0) K/uL RBC (4.50-5.90) M/uL Hgb (13.0-17.0) g/dL Hct (38.0-50.0) % MCV (80.0-98.0) fL MCH (27.0-32.0) pg MCHC (31.0-37.0) g/dL RDW Std Deviation (28.0-62.0) fl RDW Coeff of [place] (11.0-15.0) % Plt Count (150-400) K/uL MPV (7.40-12.00) fL Neut % (Auto) (48.0-80.0) % Lymph % (Auto) (16.0-40.0) % [place] % (Auto) (0.0-15.0) % Eos % (Auto) (0.0-7.0) % Baso % (Auto) (0.0-1.5) % Neut # (Auto) (1.4-5.7) K/uL Lymph # (Auto) (0.6-2.4) K/uL [place] # (Auto) (0.0-0.8) K/uL Eos # (Auto) (0.0-0.7) K/uL Baso # (Auto) (0.0-0.1) K/uL Nucleated RBC % /100WBC Nucleated RBCs # K/uL Sodium (136-148) mmol/L Potassium (3.5-5.1) mmol/L Chloride (98-107) mmol/L Carbon Dioxide (21.0-32.0) mmol/L BUN (7.0-18.0) mg/dL Creatinine (0.8-1.3) mg/dL Est Cr Clr Drug Dosing mL/min Estimated GFR (MDRD) ml/min Glucose (74-106) mg/dL Calcium (8.5-10.1) mg/dL Total Bilirubin (0.2-1.0) mg/dL AST (15-37) IU/L ALT (14-63) IU/L Alkaline Phosphatase (46-116) U/L Total Protein (6.4-8.2) g/dL Albumin (3.4-5.0) g/dL Globulin (2.6-4.0) g/dL Albumin/Globulin Ratio (0.9-1.6) Lipase (73-393) U/L Urine Color Urine Appearance Urine pH (5.0-8.0) Ur Specific [place] (1.001-1.035) Urine Protein (NEGATIVE) mg/dL Urine Glucose (UA) (NEGATIVE) mg/dL Urine Ketones (NEGATIVE) mg/dL Urine Occult Blood (NEGATIVE) Urine Nitrite (NEGATIVE) Urine Bilirubin (NEGATIVE) Urine Urobilinogen (<2.0) EU/dL Ur Leukocyte Esterase (NEGATIVE) SARS-CoV-2 RNA (BARB) NEGATIVE (NEGATIVE) Result Diagrams: 04/18/20 04:26 04/18/20 04:26 Imaging Impressions Last 24 hrs: CT scan and report have personally been reviewed. I agree he does appear to have a mid small bowel stricture with a significant inflammatory component. This could be consistent with inflammatory bowel disease. Sepsis Event Note - Evaluation Sepsis Screening Result: No Definite Risk - Focused Exam Vital Signs: Vital Signs Temp Pulse Resp BP Pulse Ox 04/18/20 08:14 106 H 16 109/54 L 97 04/18/20 07:21 74 12 108/50 L 95 04/18/20 07:02 84 126/56 L 98 04/18/20 05:58 103 H 16 106/51 L 99 04/18/20 05:07 89 16 123/55 L 96 04/18/20 04:15 98.2 F 80 18 126/59 L 97 Consult PN Assessment/Plan Procedures: Procedures [facility] TRACH DNA AMP PROBE (10/12/19) EMERGENCY DEPT VISIT (10/12/19) EMERGENCY DEPT VISIT (07/08/19) N.GONORRHOEAE DNA AMP PROB (10/12/19) THER/PROPH/DIAG INJ SC/IM (07/08/19) URINALYSIS AUTO W/O SCOPE (10/12/19) US EXAM SCROTUM (10/12/19) (1) Inflammatory bowel disease SNOMED Code(s): 35841304 Code(s): K52.9 - NONINFECTIVE GASTROENTERITIS AND COLITIS, UNSPECIFIED Priority: High Current Visit: Yes (2) Small bowel obstruction SNOMED Code(s): 017380481 Code(s): K56.609 - UNSP INTESTNL OBST, UNSP TO PARTIAL VERSUS COMPLETE OBST Priority: High Current Visit: Yes Problem List Initiated/Reviewed/Updated: Yes Plan: I would certainly recommend conservative therapy for the time being. This would include bowel rest and nothing by mouth status. He is currently not vomiting. I think we can hold off on placing an NG tube. He was encouraged to be up and as active as possible. Would certainly consider a trial of parenteral corticosteroids. At this point, we would try to be as conservative as possible and did not recommend any surgical intervention. If he worsens or develops a chronic stricture he will require laparotomy, resection and anastomosis.
[2020-04-18] MEDS ORDERED: Lactated Ringers 500 ML IV ONE (11:05)
[2020-04-18] MEDS: methylPREDNISolone Sodium Succinate 40 MG/1 ML SDV IV SCH ×2 (11:27→17:52)
[2020-04-18] MEDS: Ondansetron 4 MG/2 ML SDV IVPUSH PRN (22:23)
[2020-04-19] MEDS: Morphine 2 MG/ML SYRINGE IVPUSH PRN ×5 (00:16→21:04)
[2020-04-19] MEDS: Lactated Ringers 1,000 ML IV SCH ×3 (00:18→16:23)
[2020-04-19] MEDS: methylPREDNISolone Sodium Succinate 40 MG/1 ML SDV IV SCH ×3 (02:51→17:49)
[2020-04-19 05:55] LABS: BLOOD UREA NITROGEN,BUN 10 mg/dL (7.0-18.0); CHLORIDE,CL 103 mmol/L (98-107); GLUCOSE RANDOM 126 mg/dL (74-106); POTASSIUM,K 3.8 mmol/L (3.5-5.1); SODIUM,NA 139 mmol/L (136-148)
--- NOTE | 2020-04-19 07:58 | PCM.PN ---
- General Info Date of Service: 04/19/20 Admission Dx/Problem (Free Text): Admission Diagnosis/Problem Admission Diagnosis/Problem Small bowel obstruction Subjective Update: Feeling much improved today pain is about a 2-3/ 10, mainly feels like a soreness. No bowel movements and no passing gas as of yet. No chest pain or palpitations no shortness of breath. Starting to feel hungry today. No overt nausea or vomiting. He has been up ambulating in the hallways frequently. - Review of Systems General: Reports: No Symptoms. Denies: Fever, Weakness, Malaise HEENT: Reports: No Symptoms. Denies: Headaches, Sore Throat, Visual Changes Pulmonary: Reports: No Symptoms. Denies: Shortness of Breath Cardiovascular: Reports: No Symptoms. Denies: Chest Pain Gastrointestinal: Reports: Abdominal Pain (Mild soreness much improved from yesterday), Constipation. Denies: Flatus, Nausea, Vomiting Genitourinary: Reports: No Symptoms. Denies: Dysuria, Frequency, Burning Musculoskeletal: Reports: No Symptoms Skin: Reports: No Symptoms Neurological: Reports: No Symptoms Psychiatric: Reports: No Symptoms - Patient Data Vitals - Most Recent: Last Vital Signs Temp 98.6 F 04/19/20 03:09 Pulse 80 04/19/20 03:09 Resp 16 04/19/20 03:09 BP 125/50 L 04/19/20 03:09 Pulse Ox 95 04/19/20 03:09 Weight - Most Recent: 84.7 kg I&O - Last 24 Hours: Intake & Output 04/18/20 04/19/20 04/19/20 22:59 06:59 14:59 Intake Total 2250 1494 Output Total 1550 Balance 2250 -56 Lab Results Last 24 Hours: Laboratory Results - last 24 hr 04/19/20 04/19/20 Range/Units 05:16 05:16 WBC 19.00 H (4.0-11.0) K/uL RBC 4.94 (4.50-5.90) M/uL Hgb 16.0 (13.0-17.0) g/dL Hct 45.3 (38.0-50.0) % MCV 91.7 (80.0-98.0) fL MCH 32.4 H (27.0-32.0) pg MCHC 35.3 (31.0-37.0) g/dL RDW Std Deviation 41.6 (28.0-62.0) fl RDW Coeff of [place] 12 (11.0-15.0) % Plt Count 190 (150-400) K/uL MPV 10.30 (7.40-12.00) fL Neut % (Auto) 91.5 H (48.0-80.0) % Lymph % (Auto) 4.6 L (16.0-40.0) % [place] % (Auto) 3.8 (0.0-15.0) % Eos % (Auto) 0.0 (0.0-7.0) % Baso % (Auto) 0.1 (0.0-1.5) % Neut # (Auto) 17.4 H (1.4-5.7) K/uL Lymph # (Auto) 0.9 (0.6-2.4) K/uL [place] # (Auto) 0.7 (0.0-0.8) K/uL Eos # (Auto) 0.0 (0.0-0.7) K/uL Baso # (Auto) 0.0 (0.0-0.1) K/uL Nucleated RBC % 0.0 /100WBC Nucleated RBCs # 0 K/uL Sodium 139 (136-148) mmol/L Potassium 3.8 (3.5-5.1) mmol/L Chloride 103 (98-107) mmol/L Carbon Dioxide 26.0 (21.0-32.0) mmol/L BUN 10 (7.0-18.0) mg/dL Creatinine 0.9 (0.8-1.3) mg/dL Est Cr Clr Drug Dosing 143.70 mL/min Estimated GFR (MDRD) > 60.0 ml/min Glucose 126 H (74-106) mg/dL Calcium 9.2 (8.5-10.1) mg/dL Med Orders - Current: Current Medications Lactated Ringer's (Ringers, Lactated) 1,000 mls @ 125 mls/hr IV Q8H [facility] Last Admin: 04/19/20 00:18 Dose: Not Given Documented by: Methylprednisolone Sodium Succinate (Solu-Medrol) 20 mg IV Q8H [facility] Last Admin: 04/19/20 02:51 Dose: 20 mg Documented by: Morphine Sulfate (Morphine) 2 mg IVPUSH Q2H PRN PRN Reason: Pain Last Admin: 04/19/20 03:02 Dose: 2 mg Documented by: Ondansetron HCl (Zofran) 4 mg IVPUSH Q4H PRN PRN Reason: Nausea Last Admin: 04/18/20 22:23 Dose: 4 mg Documented by: Sodium Chloride (Saline Flush) 2.5 ml FLUSH ASDIRECTED PRN PRN Reason: Keep Vein Open Discontinued Medications Sodium Chloride (Normal Saline) 1,000 mls @ 999 mls/hr IV .Bolus ONE Stop: 04/18/20 05:26 Last Admin: 04/18/20 04:36 Dose: 999 mls/hr Documented by: Sodium Chloride (Normal Saline) 1,000 mls @ 125 mls/hr IV NOW STA Stop: 04/18/20 15:37 Last Admin: 04/18/20 08:04 Dose: 125 mls/hr Documented by: Potassium Chloride/Sodium Chloride (Normal Saline With 20 Meq Kcl) 1,000 mls @ 500 mls/hr IV ONETIME ONE Stop: 04/18/20 10:44 Last Admin: 04/18/20 08:51 Dose: 500 mls/hr Documented by: Lactated Ringer's (Ringers, Lactated) 500 mls @ 999 mls/hr IV .BOLUS ONE Stop: 04/18/20 11:35 Last Admin: 04/18/20 11:27 Dose: 999 mls/hr Documented by: Iopamidol (Isovue Multipack-370 (76%)) 100 ml IVPUSH ONETIME STA Stop: 04/18/20 05:26 Last Admin: 04/18/20 05:25 Dose: 100 ml Documented by: Morphine Sulfate (Morphine) 4 mg IVPUSH ONETIME ONE Stop: 04/18/20 04:27 Last Admin: 04/18/20 04:35 Dose: 4 mg Documented by: Morphine Sulfate (Morphine) 4 mg IVPUSH ONETIME ONE Stop: 04/18/20 07:10 Last Admin: 04/18/20 07:12 Dose: 4 mg Documented by: Ondansetron HCl (Zofran) 4 mg IVPUSH ONETIME ONE Stop: 04/18/20 04:27 Last Admin: 04/18/20 04:35 Dose: 4 mg Documented by: Sodium Chloride (Saline Flush) 10 ml FLUSH ASDIRECTED PRN PRN Reason: Keep Vein Open Last Admin: 04/18/20 04:37 Dose: 10 ml Documented by: Sodium Chloride (Saline Flush) 2.5 ml FLUSH ASDIRECTED PRN PRN Reason: Keep Vein Open Last Admin: 04/18/20 04:37 Dose: 2.5 ml Documented by: - Exam Quality Assessment: DVT Prophylaxis. No: Supplemental Oxygen General: Alert, Oriented, Cooperative, No Acute Distress Lungs: Clear to Auscultation, Normal Respiratory Effort Cardiovascular: Regular Rate, Regular Rhythm GI/Abdominal Exam: Normal Bowel Sounds, Soft, Non-Tender (Male) Exam: No Hernia Back Exam: Normal Inspection, Full Range of Motion Extremities: Normal Inspection, Normal Range of Motion, Non-Tender, No Pedal Edema Neurological: No New Focal Deficit Psy/Mental Status: Alert, Normal Affect, Normal Mood Sepsis Event Note - Evaluation Sepsis Screening Result: Sepsis Risk - Focused Exam Vital Signs: Vital Signs Temp Pulse Resp BP Pulse Ox 04/19/20 03:09 98.6 F 80 16 125/50 L 95 04/18/20 23:17 99.6 F 106 H 16 132/60 98 04/18/20 20:27 97.4 F 102 H 16 132/56 L 98 - Problem List & Annotations (1) Small bowel obstruction SNOMED Code(s): 763499388 Code(s): K56.609 - UNSP INTESTNL OBST, UNSP TO PARTIAL VERSUS COMPLETE OBST Status: Acute Priority: High Current Visit: Yes (2) Inflammatory bowel disease SNOMED Code(s): 71274920 Code(s): K52.9 - NONINFECTIVE GASTROENTERITIS AND COLITIS, UNSPECIFIED Status: Suspected Priority: High Current Visit: Yes - Problem List Review Problem List Initiated/Reviewed/Updated: Yes - My Orders Last 24 Hours: My Active Orders 04/18/20 08:00 Intake and Output [RC] Q12H Resuscitation Status Routine 04/18/20 08:01 Ondansetron [Zofran] 4 mg IVPUSH Q4H PRN Sodium Chloride 0.9% [Saline Flush] 2.5 ml FLUSH ASDIRECTED PRN Saline Lock Insert [OM.PC] Routine 04/18/20 08:15 Lactated Ringers [Ringers, Lactated] 1,000 ml IV Q8H 04/18/20 10:30 methylPREDNISolone Sod Succ [Solu-MEDROL] 20 mg IV Q8H 04/18/20 10:53 Consult to Physician [CONS] Routine 04/18/20 10:54 Notify Provider Consults [RC] ASDIRECTED 04/20/20 05:11 BMP [BASIC METABOLIC PANEL,BMP] [CHEM] AM CBC WITH AUTO DIFF [HEME] AM 04/21/20 05:11 BMP [BASIC METABOLIC PANEL,BMP] [CHEM] AM CBC WITH AUTO DIFF [HEME] AM - Plan Plan:: This 19-year-old male admitted with small bowel obstruction 1. Small bowel obstruction -Appreciate Dr. Best's consultation and recommendations -Obtain flat and upright this morning, continues to show small bowel obstruction but gas is noted within the colon. -We will obtain daily flat and upright abdominal images to monitor SBO -Leukocytosis likely secondary to steroid administration no fevers overnight mild temp elevation of 99.3. -Continue n.p.o. and bowel rest for now -LR at 125 ml/hr -Morphine as needed pain -Zofran as needed nausea -Continue Solu-Medrol 20 mg 3 times daily for suspected IBS. Will monitor closely -Encouraged ambulation in the hallway at least 4-5 times daily. VTE prophylaxis SCDs and ambulation CODE STATUS: Full code Dispo: We will transition to inpatient as he will likely need more than 2 midnight stay.
--- NOTE | 2020-04-19 09:38 | CR ---
Indication: Small-bowel obstruction Technique: Upright and supine views the abdomen were acquired Comparison: [facility] images of a CT performed April 18, 2020 Findings: Osseous structures appear normal. There are dilated loops of small bowel with air-fluid levels consistent with a small-bowel obstruction. No free air. Gas is seen in the colon. It is difficult to compare this study directly with the CT. However, my general impression is that the appearance is unchanged. Impression: Persistent small bowel obstruction pattern. No free air. Dictated by Edd Lane MD @ Apr 19 2020 9:33AM Signed by Dr. Edd Lane @ Apr 19 2020 9:35AM
[2020-04-19] MEDS: Ondansetron 4 MG/2 ML SDV IVPUSH PRN ×2 (10:01→16:23)
--- NOTE | 2020-04-19 13:56 | PCM.CONSN ---
- General Info Date of Service: 04/19/20 Admission Dx/Problem (Free Text): Partial SBO Subjective Update: States he is feeling better today. Rated pain a "2" and hadn't had any analgesics for about 5 hours. Denies flatus or BM. Functional Status: Reports: Pain Controlled - Review of Systems General: Reports: Fever (Tmax 99.6). Denies: Weakness, Fatigue, Malaise, Chills, Night Sweats HEENT: Reports: No Symptoms Pulmonary: Denies: Shortness of Breath, Pleuritic Chest Pain, Cough Cardiovascular: Denies: Chest Pain Gastrointestinal: Reports: Abdominal Pain, Decreased Appetite. Denies: Constipation, Diarrhea, Flatus, Nausea, Vomiting Genitourinary: Reports: No Symptoms Musculoskeletal: Reports: No Symptoms Skin: Reports: No Symptoms Neurological: Reports: No Symptoms Psychiatric: Reports: No Symptoms - Patient Data Vitals - Most Recent: Last Vital Signs Temp 98.2 F 04/19/20 12:00 Pulse 81 04/19/20 12:00 Resp 20 04/19/20 12:00 BP 125/62 04/19/20 12:00 Pulse Ox 97 04/19/20 12:00 Weight - Most Recent: 186 lb 11.704 oz I&O - Last 24 Hours: Intake & Output 04/19/20 04/19/20 04/19/20 03:59 11:59 19:59 Intake Total 1444 50 Output Total 1550 Balance 1444 -1500 Lab Results Last 24 Hours: Laboratory Results - last 24 hr 04/19/20 04/19/20 Range/Units 05:16 05:16 WBC 19.00 H (4.0-11.0) K/uL RBC 4.94 (4.50-5.90) M/uL Hgb 16.0 (13.0-17.0) g/dL Hct 45.3 (38.0-50.0) % MCV 91.7 (80.0-98.0) fL MCH 32.4 H (27.0-32.0) pg MCHC 35.3 (31.0-37.0) g/dL RDW Std Deviation 41.6 (28.0-62.0) fl RDW Coeff of [place] 12 (11.0-15.0) % Plt Count 190 (150-400) K/uL MPV 10.30 (7.40-12.00) fL Neut % (Auto) 91.5 H (48.0-80.0) % Lymph % (Auto) 4.6 L (16.0-40.0) % [place] % (Auto) 3.8 (0.0-15.0) % Eos % (Auto) 0.0 (0.0-7.0) % Baso % (Auto) 0.1 (0.0-1.5) % Neut # (Auto) 17.4 H (1.4-5.7) K/uL Lymph # (Auto) 0.9 (0.6-2.4) K/uL [place] # (Auto) 0.7 (0.0-0.8) K/uL Eos # (Auto) 0.0 (0.0-0.7) K/uL Baso # (Auto) 0.0 (0.0-0.1) K/uL Nucleated RBC % 0.0 /100WBC Nucleated RBCs # 0 K/uL Sodium 139 (136-148) mmol/L Potassium 3.8 (3.5-5.1) mmol/L Chloride 103 (98-107) mmol/L Carbon Dioxide 26.0 (21.0-32.0) mmol/L BUN 10 (7.0-18.0) mg/dL Creatinine 0.9 (0.8-1.3) mg/dL Est Cr Clr Drug Dosing 143.70 mL/min Estimated GFR (MDRD) > 60.0 ml/min Glucose 126 H (74-106) mg/dL Calcium 9.2 (8.5-10.1) mg/dL Med Orders - Current: Current Medications Lactated Ringer's (Ringers, Lactated) 1,000 mls @ 125 mls/hr IV Q8H [facility] Last Admin: 04/19/20 08:16 Dose: 125 mls/hr Documented by: Methylprednisolone Sodium Succinate (Solu-Medrol) 20 mg IV Q8H [facility] Last Admin: 04/19/20 10:00 Dose: 20 mg Documented by: Morphine Sulfate (Morphine) 2 mg IVPUSH Q2H PRN PRN Reason: Pain Last Admin: 04/19/20 10:01 Dose: 2 mg Documented by: Ondansetron HCl (Zofran) 4 mg IVPUSH Q4H PRN PRN Reason: Nausea Last Admin: 04/19/20 10:01 Dose: 4 mg Documented by: Sodium Chloride (Saline Flush) 2.5 ml FLUSH ASDIRECTED PRN PRN Reason: Keep Vein Open Discontinued Medications Sodium Chloride (Normal Saline) 1,000 mls @ 999 mls/hr IV .Bolus ONE Stop: 04/18/20 05:26 Last Admin: 04/18/20 04:36 Dose: 999 mls/hr Documented by: Sodium Chloride (Normal Saline) 1,000 mls @ 125 mls/hr IV NOW STA Stop: 04/18/20 15:37 Last Admin: 04/18/20 08:04 Dose: 125 mls/hr Documented by: Potassium Chloride/Sodium Chloride (Normal Saline With 20 Meq Kcl) 1,000 mls @ 500 mls/hr IV ONETIME ONE Stop: 04/18/20 10:44 Last Admin: 04/18/20 08:51 Dose: 500 mls/hr Documented by: Lactated Ringer's (Ringers, Lactated) 500 mls @ 999 mls/hr IV .BOLUS ONE Stop: 04/18/20 11:35 Last Admin: 04/18/20 11:27 Dose: 999 mls/hr Documented by: Iopamidol (Isovue Multipack-370 (76%)) 100 ml IVPUSH ONETIME STA Stop: 04/18/20 05:26 Last Admin: 04/18/20 05:25 Dose: 100 ml Documented by: Morphine Sulfate (Morphine) 4 mg IVPUSH ONETIME ONE Stop: 04/18/20 04:27 Last Admin: 04/18/20 04:35 Dose: 4 mg Documented by: Morphine Sulfate (Morphine) 4 mg IVPUSH ONETIME ONE Stop: 04/18/20 07:10 Last Admin: 04/18/20 07:12 Dose: 4 mg Documented by: Ondansetron HCl (Zofran) 4 mg IVPUSH ONETIME ONE Stop: 04/18/20 04:27 Last Admin: 04/18/20 04:35 Dose: 4 mg Documented by: Sodium Chloride (Saline Flush) 10 ml FLUSH ASDIRECTED PRN PRN Reason: Keep Vein Open Last Admin: 04/18/20 04:37 Dose: 10 ml Documented by: Sodium Chloride (Saline Flush) 2.5 ml FLUSH ASDIRECTED PRN PRN Reason: Keep Vein Open Last Admin: 04/18/20 04:37 Dose: 2.5 ml Documented by: - Exam General: Alert, Oriented, Cooperative, No Acute Distress HEENT: Pupils Equal, Pupils Reactive. No: Scleral Icterus Neck: Supple, Trachea Midline Lungs: Clear to Auscultation, Normal Respiratory Effort Cardiovascular: Regular Rate, Regular Rhythm, No Murmurs GI/Abdominal Exam: Soft, Non-Tender, No Distention, No Mass, Abnormal Bowel Sounds (Bowel sounds are more active than yesterday but remain hypoactive.). No: Guarding, Rigid, Rebound (Male) Exam: No Hernia Back Exam: Normal Inspection Extremities: Normal Inspection, Normal Range of Motion, Non-Tender Skin: Warm, Dry, Intact Neurological: No New Focal Deficit Psy/Mental Status: Alert, Normal Affect, Normal Mood Sepsis Event Note - Evaluation Sepsis Screening Result: Sepsis Risk - Focused Exam Vital Signs: Vital Signs Temp Pulse Resp BP Pulse Ox 04/19/20 12:00 98.2 F 81 20 125/62 97 04/19/20 08:00 97.7 F 102 H 20 128/75 99 04/19/20 03:09 98.6 F 80 16 125/50 L 95 Consult PN Assessment/Plan Procedures: Procedures CHYLMD TRACH DNA AMP PROBE (10/12/19) EMERGENCY DEPT VISIT (10/12/19) EMERGENCY DEPT VISIT (07/08/19) N.GONORRHOEAE DNA AMP PROB (10/12/19) THER/PROPH/DIAG INJ SC/IM (07/08/19) URINALYSIS AUTO W/O SCOPE (10/12/19) US EXAM SCROTUM (10/12/19) (1) Inflammatory bowel disease SNOMED Code(s): 99749976 Code(s): K52.9 - NONINFECTIVE GASTROENTERITIS AND COLITIS, UNSPECIFIED Priority: High Current Visit: Yes (2) Small bowel obstruction SNOMED Code(s): 052073579 Code(s): K56.609 - UNSP INTESTNL OBST, UNSP TO PARTIAL VERSUS COMPLETE OBST Priority: High Current Visit: Yes Problem List Initiated/Reviewed/Updated: Yes Plan: Flat/upright abdomen reviewed. Does have a couple of air fluid levels but I also note air in the transverse colon. Recommend repeating flat/upright abdomen in am.
[2020-04-20] MEDS: Lactated Ringers 1,000 ML IV SCH ×3 (00:30→16:38)
[2020-04-20] MEDS: methylPREDNISolone Sodium Succinate 40 MG/1 ML SDV IV SCH ×3 (02:53→18:41)
[2020-04-20] MEDS: Ondansetron 4 MG/2 ML SDV IVPUSH PRN (04:51)
[2020-04-20] MEDS: Morphine 2 MG/ML SYRINGE IVPUSH PRN (04:53)
[2020-04-20 06:02] LABS: BLOOD UREA NITROGEN,BUN 16 mg/dL (7.0-18.0); CARBON DIOXIDE,CO2 27.3 mmol/L (21.0-32.0); CHLORIDE,CL 103 mmol/L (98-107); GLUCOSE RANDOM 121 mg/dL (74-106); POTASSIUM,K 3.8 mmol/L (3.5-5.1); SODIUM,NA 140 mmol/L (136-148)
--- NOTE | 2020-04-20 06:56 | CR ---
Indication: Small-bowel obstruction Technique: Upright and supine views of the abdomen were acquired Comparison: April 19, 2020 Findings: Persistent dilation of small bowel. A few air-fluid levels are identified. No free air. Impression: Small-bowel obstruction pattern. No free air. Given technical differences, the appearance is similar to the prior exam without obvious change. Dictated by Edd Lane MD @ Apr 20 2020 6:53AM Signed by Dr. Edd Lane @ Apr 20 2020 6:55AM
--- NOTE | 2020-04-20 07:58 | PCM.PN ---
- General Info Date of Service: 04/20/20 Admission Dx/Problem (Free Text): Partial SBO Subjective Update: Reports he is feeling much improved today. Reports he did have nausea with emesis around 4 AM but has since continued to feel improved. Reports that he is passing a significant amount of gas since then and is feeling hungry. No chest pain or shortness of breath On second rounds he reports that he recently had medium sized formed bowel movement brown in color no black or bloody stool and no diarrhea. Continues to feel improved with no abdominal pain and no nausea. Functional Status: Reports: Pain Controlled, Ambulating, Urinating - Review of Systems General: Reports: No Symptoms. Denies: Fatigue, Malaise Pulmonary: Reports: No Symptoms. Denies: Shortness of Breath Cardiovascular: Reports: No Symptoms. Denies: Chest Pain Gastrointestinal: Reports: No Symptoms. Denies: Abdominal Pain, Nausea, Vomiting Genitourinary: Reports: No Symptoms. Denies: Dysuria, Frequency, Burning Musculoskeletal: Reports: No Symptoms Skin: Reports: No Symptoms Neurological: Reports: No Symptoms Psychiatric: Reports: No Symptoms - Patient Data Vitals - Most Recent: Last Vital Signs Temp 98.2 F 04/20/20 04:00 Pulse 92 04/20/20 04:00 Resp 18 04/20/20 04:00 BP 132/80 04/20/20 04:00 Pulse Ox 96 04/20/20 07:00 Weight - Most Recent: 84.7 kg I&O - Last 24 Hours: Intake & Output 04/19/20 04/20/20 04/20/20 22:59 06:59 14:59 Intake Total 0 0 Output Total 920 Balance 0 -920 Lab Results Last 24 Hours: Laboratory Results - last 24 hr 04/20/20 04/20/20 Range/Units 05:17 05:17 WBC 17.50 H (4.0-11.0) K/uL RBC 4.96 (4.50-5.90) M/uL Hgb 15.9 (13.0-17.0) g/dL Hct 45.5 (38.0-50.0) % MCV 91.7 (80.0-98.0) fL MCH 32.1 H (27.0-32.0) pg MCHC 34.9 (31.0-37.0) g/dL RDW Std Deviation 41.3 (28.0-62.0) fl RDW Coeff of [place] 12 (11.0-15.0) % Plt Count 184 (150-400) K/uL MPV 10.20 (7.40-12.00) fL Neut % (Auto) 89.2 H (48.0-80.0) % Lymph % (Auto) 5.4 L (16.0-40.0) % [place] % (Auto) 5.2 (0.0-15.0) % Eos % (Auto) 0.1 (0.0-7.0) % Baso % (Auto) 0.1 (0.0-1.5) % Neut # (Auto) 15.6 H (1.4-5.7) K/uL Lymph # (Auto) 0.9 (0.6-2.4) K/uL [place] # (Auto) 0.9 H (0.0-0.8) K/uL Eos # (Auto) 0.0 (0.0-0.7) K/uL Baso # (Auto) 0.0 (0.0-0.1) K/uL Nucleated RBC % 0.0 /100WBC Nucleated RBCs # 0 K/uL Sodium 140 (136-148) mmol/L Potassium 3.8 (3.5-5.1) mmol/L Chloride 103 (98-107) mmol/L Carbon Dioxide 27.3 (21.0-32.0) mmol/L BUN 16 (7.0-18.0) mg/dL Creatinine 1.0 (0.8-1.3) mg/dL Est Cr Clr Drug Dosing 129.33 mL/min Estimated GFR (MDRD) > 60.0 ml/min Glucose 121 H (74-106) mg/dL Calcium 9.1 (8.5-10.1) mg/dL Med Orders - Current: Current Medications Lactated Ringer's (Ringers, Lactated) 1,000 mls @ 125 mls/hr IV Q8H [facility] Last Admin: 04/20/20 00:30 Dose: 125 mls/hr Documented by: Methylprednisolone Sodium Succinate (Solu-Medrol) 20 mg IV Q8H [facility] Last Admin: 04/20/20 02:53 Dose: 20 mg Documented by: Morphine Sulfate (Morphine) 2 mg IVPUSH Q2H PRN PRN Reason: Pain Last Admin: 04/20/20 04:53 Dose: 2 mg Documented by: Ondansetron HCl (Zofran) 4 mg IVPUSH Q4H PRN PRN Reason: Nausea Last Admin: 04/20/20 04:51 Dose: 4 mg Documented by: Sodium Chloride (Saline Flush) 2.5 ml FLUSH ASDIRECTED PRN PRN Reason: Keep Vein Open Discontinued Medications Sodium Chloride (Normal Saline) 1,000 mls @ 999 mls/hr IV .Bolus ONE Stop: 04/18/20 05:26 Last Admin: 04/18/20 04:36 Dose: 999 mls/hr Documented by: Sodium Chloride (Normal Saline) 1,000 mls @ 125 mls/hr IV NOW STA Stop: 04/18/20 15:37 Last Admin: 04/18/20 08:04 Dose: 125 mls/hr Documented by: Potassium Chloride/Sodium Chloride (Normal Saline With 20 Meq Kcl) 1,000 mls @ 500 mls/hr IV ONETIME ONE Stop: 04/18/20 10:44 Last Admin: 04/18/20 08:51 Dose: 500 mls/hr Documented by: Lactated Ringer's (Ringers, Lactated) 500 mls @ 999 mls/hr IV .BOLUS ONE Stop: 04/18/20 11:35 Last Admin: 04/18/20 11:27 Dose: 999 mls/hr Documented by: Iopamidol (Isovue Multipack-370 (76%)) 100 ml IVPUSH ONETIME STA Stop: 04/18/20 05:26 Last Admin: 04/18/20 05:25 Dose: 100 ml Documented by: Morphine Sulfate (Morphine) 4 mg IVPUSH ONETIME ONE Stop: 04/18/20 04:27 Last Admin: 04/18/20 04:35 Dose: 4 mg Documented by: Morphine Sulfate (Morphine) 4 mg IVPUSH ONETIME ONE Stop: 04/18/20 07:10 Last Admin: 04/18/20 07:12 Dose: 4 mg Documented by: Ondansetron HCl (Zofran) 4 mg IVPUSH ONETIME ONE Stop: 04/18/20 04:27 Last Admin: 04/18/20 04:35 Dose: 4 mg Documented by: Sodium Chloride (Saline Flush) 10 ml FLUSH ASDIRECTED PRN PRN Reason: Keep Vein Open Last Admin: 04/18/20 04:37 Dose: 10 ml Documented by: Sodium Chloride (Saline Flush) 2.5 ml FLUSH ASDIRECTED PRN PRN Reason: Keep Vein Open Last Admin: 04/18/20 04:37 Dose: 2.5 ml Documented by: - Exam Quality Assessment: DVT Prophylaxis. No: Supplemental Oxygen General: Alert, Oriented, Cooperative, No Acute Distress Lungs: Clear to Auscultation, Normal Respiratory Effort Cardiovascular: Regular Rate, Regular Rhythm GI/Abdominal Exam: Normal Bowel Sounds, Soft, Non-Tender, No Distention, No Mass Extremities: Normal Inspection, Normal Range of Motion, Non-Tender, No Pedal Edema Neurological: No New Focal Deficit Psy/Mental Status: Alert, Normal Affect, Normal Mood Sepsis Event Note - Evaluation Sepsis Screening Result: No Definite Risk - Focused Exam Vital Signs: Vital Signs Temp Pulse Resp BP Pulse Ox Pulse Ox 04/20/20 07:00 96 04/20/20 04:00 98.2 F 92 18 132/80 97 04/20/20 00:00 98.2 F 88 18 120/65 96 04/19/20 20:00 97.7 F 86 20 125/68 97 - Problem List & Annotations (1) Small bowel obstruction SNOMED Code(s): 400128519 Code(s): K56.609 - UNSP INTESTNL OBST, UNSP TO PARTIAL VERSUS COMPLETE OBST Status: Acute Priority: High Current Visit: Yes (2) Inflammatory bowel disease SNOMED Code(s): 58534616 Code(s): K52.9 - NONINFECTIVE GASTROENTERITIS AND COLITIS, UNSPECIFIED Status: Suspected Priority: High Current Visit: Yes - Problem List Review Problem List Initiated/Reviewed/Updated: Yes - My Orders Last 24 Hours: My Active Orders 04/19/20 11:01 Patient Status [ADT] Stat 04/21/20 05:11 BMP [BASIC METABOLIC PANEL,BMP] [CHEM] AM CBC WITH AUTO DIFF [HEME] AM 04/21/20 06:30 Abdomen 2V AP Flat Upright [CR] DAILY 04/22/20 06:30 Abdomen 2V AP Flat Upright [CR] DAILY - Plan Plan:: This 19-year-old male admitted with small bowel obstruction 1. Small bowel obstruction -Appreciate Dr. Best's consultation and recommendations -Abdominal x-ray no change from yesterday. But he is continuing to feel better and did have a bowel movement this morning -We will obtain daily flat and upright abdominal images to monitor SBO -Leukocytosis likely secondary to steroid administration, improving -Continue n.p.o. and bowel rest for now -LR at 125 ml/hr -Morphine as needed pain -Zofran as needed nausea -Continue Solu-Medrol 20 mg 3 times daily for suspected IBS. Will monitor closely -Encouraged ambulation in the hallway at least 4-5 times daily. -Will consider advancing to clear liquid diet after evaluation by Dr. Best. VTE prophylaxis SCDs and ambulation CODE STATUS: Full code Dispo: 1 to 2 days I did speak with Man's mother, Ameena, regarding hospitalization current treatment plans and referral needed to GI as an outpatient. She can be reached at [phone]
--- NOTE | 2020-04-20 13:56 | PCM.CONSN ---
- General Info Date of Service: 04/20/20 Admission Dx/Problem (Free Text): Partial SBO Subjective Update: Feeling much better today. Did have an emesis about 0430 hours. Since then he has continued to pass gas and has had a large BM. Rates pain a "1". Functional Status: Reports: Pain Controlled, Ambulating, Urinating - Review of Systems General: Denies: Fever, Weakness, Malaise, Chills HEENT: Reports: No Symptoms Pulmonary: Denies: Shortness of Breath, Pleuritic Chest Pain, Cough Cardiovascular: Denies: Chest Pain, Palpitations Gastrointestinal: Reports: Flatus. Denies: Abdominal Pain, Constipation, Diarrhea, Nausea, Vomiting Genitourinary: Denies: Dysuria, Frequency, Burning Musculoskeletal: Reports: No Symptoms Skin: Reports: No Symptoms Neurological: Reports: No Symptoms Psychiatric: Reports: No Symptoms - Patient Data Vitals - Most Recent: Last Vital Signs Temp 97.8 F 04/20/20 12:00 Pulse 70 04/20/20 12:00 Resp 16 04/20/20 12:00 BP 116/49 L 04/20/20 12:00 Pulse Ox 98 04/20/20 12:00 Weight - Most Recent: 186 lb 11.704 oz I&O - Last 24 Hours: Intake & Output 04/20/20 04/20/20 04/20/20 03:59 11:59 19:59 Intake Total 0 Output Total 920 Balance -920 Imaging Impressions - Last 24 Hours: Abdominal films reviewed--essentially unchanged from yesterday. Lab Results Last 24 Hours: Laboratory Results - last 24 hr 04/20/20 04/20/20 Range/Units 05:17 05:17 WBC 17.50 H (4.0-11.0) K/uL RBC 4.96 (4.50-5.90) M/uL Hgb 15.9 (13.0-17.0) g/dL Hct 45.5 (38.0-50.0) % MCV 91.7 (80.0-98.0) fL MCH 32.1 H (27.0-32.0) pg MCHC 34.9 (31.0-37.0) g/dL RDW Std Deviation 41.3 (28.0-62.0) fl RDW Coeff of [place] 12 (11.0-15.0) % Plt Count 184 (150-400) K/uL MPV 10.20 (7.40-12.00) fL Neut % (Auto) 89.2 H (48.0-80.0) % Lymph % (Auto) 5.4 L (16.0-40.0) % [place] % (Auto) 5.2 (0.0-15.0) % Eos % (Auto) 0.1 (0.0-7.0) % Baso % (Auto) 0.1 (0.0-1.5) % Neut # (Auto) 15.6 H (1.4-5.7) K/uL Lymph # (Auto) 0.9 (0.6-2.4) K/uL [place] # (Auto) 0.9 H (0.0-0.8) K/uL Eos # (Auto) 0.0 (0.0-0.7) K/uL Baso # (Auto) 0.0 (0.0-0.1) K/uL Nucleated RBC % 0.0 /100WBC Nucleated RBCs # 0 K/uL Sodium 140 (136-148) mmol/L Potassium 3.8 (3.5-5.1) mmol/L Chloride 103 (98-107) mmol/L Carbon Dioxide 27.3 (21.0-32.0) mmol/L BUN 16 (7.0-18.0) mg/dL Creatinine 1.0 (0.8-1.3) mg/dL Est Cr Clr Drug Dosing 129.33 mL/min Estimated GFR (MDRD) > 60.0 ml/min Glucose 121 H (74-106) mg/dL Calcium 9.1 (8.5-10.1) mg/dL Med Orders - Current: Current Medications Lactated Ringer's (Ringers, Lactated) 1,000 mls @ 125 mls/hr IV Q8H SHE[facility] Last Admin: 04/20/20 08:44 Dose: 125 mls/hr Documented by: Methylprednisolone Sodium Succinate (Solu-Medrol) 20 mg IV Q8H SHEL[facility] Last Admin: 04/20/20 10:51 Dose: 20 mg Documented by: Morphine Sulfate (Morphine) 2 mg IVPUSH Q2H PRN PRN Reason: Pain Last Admin: 04/20/20 04:53 Dose: 2 mg Documented by: Ondansetron HCl (Zofran) 4 mg IVPUSH Q4H PRN PRN Reason: Nausea Last Admin: 04/20/20 04:51 Dose: 4 mg Documented by: Sodium Chloride (Saline Flush) 2.5 ml FLUSH ASDIRECTED PRN PRN Reason: Keep Vein Open Discontinued Medications Sodium Chloride (Normal Saline) 1,000 mls @ 999 mls/hr IV .Bolus ONE Stop: 04/18/20 05:26 Last Admin: 04/18/20 04:36 Dose: 999 mls/hr Documented by: Sodium Chloride (Normal Saline) 1,000 mls @ 125 mls/hr IV NOW STA Stop: 04/18/20 15:37 Last Admin: 04/18/20 08:04 Dose: 125 mls/hr Documented by: Potassium Chloride/Sodium Chloride (Normal Saline With 20 Meq Kcl) 1,000 mls @ 500 mls/hr IV ONETIME ONE Stop: 04/18/20 10:44 Last Admin: 04/18/20 08:51 Dose: 500 mls/hr Documented by: Lactated Ringer's (Ringers, Lactated) 500 mls @ 999 mls/hr IV .BOLUS ONE Stop: 04/18/20 11:35 Last Admin: 04/18/20 11:27 Dose: 999 mls/hr Documented by: Iopamidol (Isovue Multipack-370 (76%)) 100 ml IVPUSH ONETIME STA Stop: 04/18/20 05:26 Last Admin: 04/18/20 05:25 Dose: 100 ml Documented by: Morphine Sulfate (Morphine) 4 mg IVPUSH ONETIME ONE Stop: 04/18/20 04:27 Last Admin: 04/18/20 04:35 Dose: 4 mg Documented by: Morphine Sulfate (Morphine) 4 mg IVPUSH ONETIME ONE Stop: 04/18/20 07:10 Last Admin: 04/18/20 07:12 Dose: 4 mg Documented by: Ondansetron HCl (Zofran) 4 mg IVPUSH ONETIME ONE Stop: 04/18/20 04:27 Last Admin: 04/18/20 04:35 Dose: 4 mg Documented by: Sodium Chloride (Saline Flush) 10 ml FLUSH ASDIRECTED PRN PRN Reason: Keep Vein Open Last Admin: 04/18/20 04:37 Dose: 10 ml Documented by: Sodium Chloride (Saline Flush) 2.5 ml FLUSH ASDIRECTED PRN PRN Reason: Keep Vein Open Last Admin: 04/18/20 04:37 Dose: 2.5 ml Documented by: - Exam Quality Assessment: No: Supplemental Oxygen, Central Line/PICC General: Alert, Oriented, Cooperative, No Acute Distress HEENT: Pupils Equal, Pupils Reactive. No: Scleral Icterus Neck: Supple Lungs: Clear to Auscultation, Normal Respiratory Effort Cardiovascular: Regular Rate, Regular Rhythm. No: Tachycardia GI/Abdominal Exam: Normal Bowel Sounds, Soft, Non-Tender, No Mass. No: Guarding, Rigid, Rebound (Male) Exam: No Hernia Back Exam: Normal Inspection, Full Range of Motion Extremities: Normal Inspection, Normal Range of Motion, Non-Tender Skin: Warm, Dry, Intact Neurological: No New Focal Deficit Psy/Mental Status: Alert, Normal Affect, Normal Mood Sepsis Event Note - Evaluation Sepsis Screening Result: No Definite Risk - Focused Exam Vital Signs: Vital Signs Temp Pulse Resp BP Pulse Ox Pulse Ox 04/20/20 12:00 97.8 F 70 16 116/49 L 98 04/20/20 08:00 98.0 F 90 16 110/47 L 98 04/20/20 07:00 96 04/20/20 04:00 98.2 F 92 18 132/80 97 Consult PN Assessment/Plan Procedures: Procedures CHYLMD TRACH DNA AMP PROBE (10/12/19) EMERGENCY DEPT VISIT (10/12/19) EMERGENCY DEPT VISIT (07/08/19) N.GONORRHOEAE DNA AMP PROB (10/12/19) THER/PROPH/DIAG INJ SC/IM (07/08/19) URINALYSIS AUTO W/O SCOPE (10/12/19) US EXAM SCROTUM (10/12/19) (1) Inflammatory bowel disease SNOMED Code(s): 57902386 Code(s): K52.9 - NONINFECTIVE GASTROENTERITIS AND COLITIS, UNSPECIFIED Priority: High Current Visit: Yes (2) Small bowel obstruction SNOMED Code(s): 585083236 Code(s): K56.609 - UNSP INTESTNL OBST, UNSP TO PARTIAL VERSUS COMPLETE OBST Priority: High Current Visit: Yes Problem List Initiated/Reviewed/Updated: Yes Plan: Patient is feeling much better and has been passing more flatus and having BM's. Would try him on full liquids and if he tolerated this well, consider discharge tomorrow. Should eat lightly. Would also refer for gastroenterologic consultation.
[2020-04-21] MEDS: Lactated Ringers 1,000 ML IV SCH ×2 (00:16→08:52)
[2020-04-21] MEDS: methylPREDNISolone Sodium Succinate 40 MG/1 ML SDV IV SCH ×2 (02:15→11:30)
[2020-04-21 06:35] LABS: BLOOD UREA NITROGEN,BUN 18 mg/dL (7.0-18.0); CARBON DIOXIDE,CO2 28.8 mmol/L (21.0-32.0); CHLORIDE,CL 104 mmol/L (98-107); GLUCOSE RANDOM 110 mg/dL (74-106); POTASSIUM,K 4.2 mmol/L (3.5-5.1); SODIUM,NA 141 mmol/L (136-148)
--- NOTE | 2020-04-21 06:56 | CR ---
INDICATION: Follow-up small bowel obstruction. COMPARISON: COMPARISON DATE FINDINGS: Erect and supine films of the abdomen were obtained. In the abdomen, there is no sign of distention of the small bowel or colon to suggest obstruction or ileus. The previously seen mild dilatation of small-bowel loops has resolved, representing resolution of partial small bowel obstruction. There is no sign of free air or distinct mass. The osseous structures are normal in appearance for the patient`s age. The lung bases remain clear. IMPRESSION: Resolution of previously seen partial small-bowel obstruction. Nonobstructive bowel gas pattern. Dictated by Craig Still MD @ Apr 21 2020 6:54AM Signed by Dr. Craig Still @ Apr 21 2020 6:55AM
--- NOTE | 2020-04-21 13:17 | PCM.DCSUM1 ---
Discharge Summary - Discharge Data Discharge Date: 04/21/20 Discharge Disposition: Home, Self-Care 01 Condition: Good - Referral to Home Health Primary Care Physician: PCP None - Patient Summary/Data Consults: Consultations 04/18/20 10:53 Consult to Physician [CONS] Routine Hospital Course: 19-year-old male who was admitted for small bowel obstruction. Patient presented with one day of abdominal pain. In the ER he was noted to have leukocytosis 14,000. Small left shift with neutrophils 84% potassium 3.3 glucose 122 bili is 1.5 no other elevations of liver functions. UA was negative Covid swab was negative he was treated with pain medicine and IV fluids. He was noted to be slightly tachycardic in the ER but this resolved with IV fluids. CT of the abdomen and pelvis was obtained which showed a partial small bowel obstruction with dilation of the mid small bowel to a short segment of focal narrowing in the distal jejunum probably a stricture. Dr. Best, general surgery, was consulted. He was given bowel rest and IV fluids on the medical floor. His pain did improved and he was advanced to a full liquid diet the day prior to discharge. He is to be discharged home to have follow up with [facility] in [place]. - Patient Instructions Diet, Other: full liquid diet for 48 hrs then advance as tolerated Activity: As Tolerated Notify Provider of: Fever, Increased Pain, Nausea and/or Vomiting - Discharge Plan Home Medications: Home Meds . [No Known Home Meds] 10/12/19 [History] Patient Handouts: Bowel Obstruction, [id number] Referrals: Jh Rodriguez MD [Resident] - 04/25/20 8:45 am - Discharge Summary/Plan Comment DC Time >30 min.: No - Patient Data Vitals - Most Recent: Last Vital Signs Temp 36.3 C 04/21/20 08:49 Pulse 78 04/21/20 08:49 Resp 16 04/21/20 08:49 BP 116/57 L 04/21/20 08:49 Pulse Ox 98 04/21/20 08:49 Weight - Most Recent: 84.7 kg I&O - Last 24 hours: Intake & Output 04/20/20 04/21/20 04/21/20 22:59 06:59 14:59 Intake Total 3082 200 1000 Output Total 0 Balance 3082 200 1000 Lab Results - Last 24 hrs: Laboratory Results - last 24 hr 04/21/20 04/21/20 Range/Units 05:20 05:20 WBC 11.64 H (4.0-11.0) K/uL RBC 4.81 (4.50-5.90) M/uL Hgb 15.1 (13.0-17.0) g/dL Hct 44.4 (38.0-50.0) % MCV 92.3 (80.0-98.0) fL MCH 31.4 (27.0-32.0) pg MCHC 34.0 (31.0-37.0) g/dL RDW Std Deviation 41.2 (28.0-62.0) fl RDW Coeff of [place] 12 (11.0-15.0) % Plt Count 171 (150-400) K/uL MPV 10.60 (7.40-12.00) fL Neut % (Auto) 87.8 H (48.0-80.0) % Lymph % (Auto) 7.5 L (16.0-40.0) % [place] % (Auto) 4.6 (0.0-15.0) % Eos % (Auto) 0.1 (0.0-7.0) % Baso % (Auto) 0.0 (0.0-1.5) % Neut # (Auto) 10.2 H (1.4-5.7) K/uL Lymph # (Auto) 0.9 (0.6-2.4) K/uL [place] # (Auto) 0.5 (0.0-0.8) K/uL Eos # (Auto) 0.0 (0.0-0.7) K/uL Baso # (Auto) 0.0 (0.0-0.1) K/uL Nucleated RBC % 0.0 /100WBC Nucleated RBCs # 0 K/uL Sodium 141 (136-148) mmol/L Potassium 4.2 (3.5-5.1) mmol/L Chloride 104 (98-107) mmol/L Carbon Dioxide 28.8 (21.0-32.0) mmol/L BUN 18 (7.0-18.0) mg/dL Creatinine 0.9 (0.8-1.3) mg/dL Est Cr Clr Drug Dosing 143.70 mL/min Estimated GFR (MDRD) > 60.0 ml/min Glucose 110 H (74-106) mg/dL Calcium 9.2 (8.5-10.1) mg/dL Med Orders - Current: Current Medications Lactated Ringer's (Ringers, Lactated) 1,000 mls @ 125 mls/hr IV Q8H [facility] Last Admin: 04/21/20 08:52 Dose: 125 mls/hr Documented by: Methylprednisolone Sodium Succinate (Solu-Medrol) 20 mg IV Q8H SHELBI Last Admin: 04/21/20 11:30 Dose: 20 mg Documented by: Morphine Sulfate (Morphine) 2 mg IVPUSH Q2H PRN PRN Reason: Pain Last Admin: 04/20/20 04:53 Dose: 2 mg Documented by: Ondansetron HCl (Zofran) 4 mg IVPUSH Q4H PRN PRN Reason: Nausea Last Admin: 04/20/20 04:51 Dose: 4 mg Documented by: Sodium Chloride (Saline Flush) 2.5 ml FLUSH ASDIRECTED PRN PRN Reason: Keep Vein Open Discontinued Medications Sodium Chloride (Normal Saline) 1,000 mls @ 999 mls/hr IV .Bolus ONE Stop: 04/18/20 05:26 Last Admin: 04/18/20 04:36 Dose: 999 mls/hr Documented by: Sodium Chloride (Normal Saline) 1,000 mls @ 125 mls/hr IV NOW STA Stop: 04/18/20 15:37 Last Admin: 04/18/20 08:04 Dose: 125 mls/hr Documented by: Potassium Chloride/Sodium Chloride (Normal Saline With 20 Meq Kcl) 1,000 mls @ 500 mls/hr IV ONETIME ONE Stop: 04/18/20 10:44 Last Admin: 04/18/20 08:51 Dose: 500 mls/hr Documented by: Lactated Ringer's (Ringers, Lactated) 500 mls @ 999 mls/hr IV .BOLUS ONE Stop: 04/18/20 11:35 Last Admin: 04/18/20 11:27 Dose: 999 mls/hr Documented by: Iopamidol (Isovue Multipack-370 (76%)) 100 ml IVPUSH ONETIME STA Stop: 04/18/20 05:26 Last Admin: 04/18/20 05:25 Dose: 100 ml Documented by: Morphine Sulfate (Morphine) 4 mg IVPUSH ONETIME ONE Stop: 04/18/20 04:27 Last Admin: 04/18/20 04:35 Dose: 4 mg Documented by: Morphine Sulfate (Morphine) 4 mg IVPUSH ONETIME ONE Stop: 04/18/20 07:10 Last Admin: 04/18/20 07:12 Dose: 4 mg Documented by: Ondansetron HCl (Zofran) 4 mg IVPUSH ONETIME ONE Stop: 04/18/20 04:27 Last Admin: 04/18/20 04:35 Dose: 4 mg Documented by: Sodium Chloride (Saline Flush) 10 ml FLUSH ASDIRECTED PRN PRN Reason: Keep Vein Open Last Admin: 04/18/20 04:37 Dose: 10 ml Documented by: Sodium Chloride (Saline Flush) 2.5 ml FLUSH ASDIRECTED PRN PRN Reason: Keep Vein Open Last Admin: 04/18/20 04:37 Dose: 2.5 ml Documented by:
== END 2020-04-21 14:15 | disposition home or self-care (01) | DRG 390 ==
LOC: MW.ED 04:09 → MW.MS 06:05 → OBSVTOIN 04-19 11:01 → MW.MS 04-19 11:02
PROVIDERS: ADMIT Student in an Organized Health Care Education/Training Program; ATTEND Student in an Organized Health Care Education/Training Program
DX: K56.600 Partial intestinal obstruction, unspecified as to cause (principal); K52.9 Noninfective gastroenteritis and colitis, unspecified; E86.0 Dehydration; F17.220 Nicotine dependence, chewing tobacco, uncomplicated; Z20.828 Contact with and (suspected) exposure to other viral communicable diseases
CPT/HCPCS: 36415; 74019; 74019-26; 74177; 74177-26; 80048; 80053; 81003; 83690; 85025; J2270; J2405; J2920; J3480; J7030; J7120; Q9967; U0002